=== PATIENT | male | born 1950 | race Caucasian/White ===

== ENCOUNTER → 2016-06-01 | Outpatient (REF) | payer OTHER ==
[~2016-06-01] MED LIST: ASPI81TA85 PO; ATOR40TA PO; CARV25TA PO; FISH100049 PO; IRON65TA PO; LORT5TAB PO; METF750T PO; MULTTAB PO; NEXI40CA PO
== END | disposition home or self-care (01) ==
LOC: M LAB REF 12:32
PROVIDERS: ATTEND Internal Medicine Medical Oncology
DX: C18.9 Malignant neoplasm of colon, unspecified (principal)

== ENCOUNTER → 2016-07-01 | Outpatient (REF) | payer MEDICARE, OTHER ==
[2016-07-01 14:23] LABS: BLOOD UREA NITROGEN 16 MG/DL (7-18); CREATININE FOR GFR 0.79 MG/DL (0.70-1.30); GLOMERULAR FILTRATION RATE > 60.0 (>49)
== END ==
LOC: M LABDRAW1 13:00
PROVIDERS: ATTEND Orthopaedic Surgery
DX: M23.222 Derangement of posterior horn of medial meniscus due to old tear or injury, left knee (principal)

== ENCOUNTER → 2016-08-19 | Outpatient (REF) | payer MEDICARE, OTHER ==
[~2016-08-19] MED LIST changes: -ATOR40TA PO; +ATOR40TA75 PO
[2016-08-19 12:11] LABS: ALBUMIN 3.9 GM/DL (3.2-5.2); ALBUMIN/GLOBULIN RATIO 0.91 (1.00-1.93); ALKALINE PHOSPHATASE 70 U/L (45-117); ALT/SGPT 30 U/L (12-78); ANION GAP 7 MEQ/L (8-16); AST/SGOT 15 U/L (15-37); BILIRUBIN,TOTAL 0.5 MG/DL (0.2-1.0); BLOOD UREA NITROGEN 13 MG/DL (7-18); CARBON DIOXIDE LEVEL 28 MEQ/L (21-32); CHLORIDE LEVEL 105 MEQ/L (98-107); CHOLESTEROL LEVEL 219 MG/DL (<200); CREATININE FOR GFR 0.76 MG/DL (0.70-1.30); GLOMERULAR FILTRATION RATE > 60.0 (>49); GLUCOSE, FASTING 131 MG/DL (80-110); POTASSIUM SERUM 4.3 MEQ/L (3.5-5.1); SODIUM LEVEL 140 MEQ/L (136-145); TOTAL PROTEIN 8.2 GM/DL (6.4-8.2); TRIGLYCERIDES LEVEL 291 MG/DL (<150)
== END ==
LOC: M SFHCPLAZ 08:07
PROVIDERS: ATTEND Nurse Practitioner Adult Health
DX: I10 Essential (primary) hypertension (principal); E11.9 Type 2 diabetes mellitus without complications; E78.00 Pure hypercholesterolemia, unspecified; R97.20 Elevated prostate specific antigen [PSA]
CPT/HCPCS: 80053; 80061; 82043; 83036; G0103

== ENCOUNTER → 2017-03-29 | Outpatient (REF) | payer MEDICARE, OTHER | LOC: M LAB REF 13:42 | PROVIDERS: ATTEND Internal Medicine Medical Oncology | DX: C18.9 Malignant neoplasm of colon, unspecified (principal) ==

== ENCOUNTER → 2017-06-30 | Outpatient (REF) | payer OTHER | LOC: M LAB REF 13:44 | DX: C44.41 Basal cell carcinoma of skin of scalp and neck (principal) ==

== ENCOUNTER → 2017-08-04 | Outpatient (REF) | payer MEDICARE, OTHER ==
[2017-08-04 13:19] LABS: ALBUMIN 3.6 GM/DL (3.2-5.2); ALBUMIN/GLOBULIN RATIO 0.73 (1.00-1.93); ALKALINE PHOSPHATASE 82 U/L (45-117); ALT/SGPT 38 U/L (12-78); ANION GAP 9 MEQ/L (8-16); AST/SGOT 22 U/L (7-37); BILIRUBIN,TOTAL 0.3 MG/DL (0.2-1.0); BLOOD UREA NITROGEN 19 MG/DL (7-18); CALCIUM LEVEL 8.9 MG/DL (8.8-10.2); CARBON DIOXIDE LEVEL 23 MEQ/L (21-32); CHLORIDE LEVEL 108 MEQ/L (98-107); CHOLESTEROL LEVEL 172 MG/DL (<200); CHOLESTEROL RISK RATIO 5.212 (<5); CREATININE FOR GFR 0.88 MG/DL (0.70-1.30); GLOMERULAR FILTRATION RATE > 60.0 (>49); GLUCOSE, FASTING 124 MG/DL (70-100); HDL CHOLESTEROL 33 MG/DL (>40); LDL CHOLESTEROL 93.2 MG/DL (<100); NON-HDL-C 139 MG/DL; POTASSIUM SERUM 4.8 MEQ/L (3.5-5.1); SODIUM LEVEL 140 MEQ/L (136-145); TOTAL PROTEIN 8.5 GM/DL (6.4-8.2); TRIGLYCERIDES LEVEL 229 MG/DL (<150)
[2017-08-04 13:29] LABS: ESTIMATED AVERAGE GLUCOSE 160 MG/DL (60-110); HEMOGLOBIN A1c 7.2 %
[2017-08-04 13:51] LABS: MALB URINE SIEMENS 18.9 MG/L; MAU/CREAT RATIO 13.8 MCG/MG (0.0-30.0)
== END ==
LOC: M SFHCPLAZ 08:26
DX: E11.9 Type 2 diabetes mellitus without complications (principal); E78.2 Mixed hyperlipidemia
CPT/HCPCS: 80053

== ENCOUNTER → 2017-09-23 | Outpatient (REF) | payer MEDICARE, OTHER ==
[2017-09-23 13:42] LABS: CARCINOEMBRYONIC ANTIGEN 2.7 NG/ML (<2.5)
== END ==
LOC: M LAB REF 13:18
DX: Z08 Encounter for follow-up examination after completed treatment for malignant neoplasm (principal); Z85.038 Personal history of other malignant neoplasm of large intestine
CPT/HCPCS: 82378

== ENCOUNTER → 2018-02-24 | Outpatient (REF) | payer MEDICARE, OTHER ==
[2018-02-24 12:31] LABS: ALBUMIN 3.8 GM/DL (3.2-5.2); ALBUMIN/GLOBULIN RATIO 0.79 (1.00-1.93); ALKALINE PHOSPHATASE 73 U/L (45-117); ALT/SGPT 44 U/L (12-78); ANION GAP 7 MEQ/L (8-16); AST/SGOT 24 U/L (7-37); BILIRUBIN,TOTAL 0.4 MG/DL (0.2-1.0); BLOOD UREA NITROGEN 21 MG/DL (7-18); CALCIUM LEVEL 9.1 MG/DL (8.8-10.2); CARBON DIOXIDE LEVEL 25 MEQ/L (21-32); CHLORIDE LEVEL 106 MEQ/L (98-107); CHOLESTEROL LEVEL 203 MG/DL (<200); CREATININE FOR GFR 0.87 MG/DL (0.70-1.30); GLOMERULAR FILTRATION RATE > 60.0 (>49); GLUCOSE, FASTING 143 MG/DL (70-100); HDL CHOLESTEROL 35 MG/DL (>40); MAGNESIUM LEVEL 1.9 MG/DL (1.8-2.4); NON-HDL-C 168 MG/DL; POTASSIUM SERUM 4.4 MEQ/L (3.5-5.1); PROSTATIC SPECIFIC AG MONITOR 4.9 NG/ML (< 4.0); SODIUM LEVEL 138 MEQ/L (136-145); TOTAL PROTEIN 8.6 GM/DL (6.4-8.2); TRIGLYCERIDES LEVEL 477 MG/DL (<150)
[2018-02-24 14:35] LABS: ESTIMATED AVERAGE GLUCOSE 154 MG/DL (60-110)
== END ==
LOC: M SFHCPLAZ 07:41
DX: E11.9 Type 2 diabetes mellitus without complications (principal); E78.2 Mixed hyperlipidemia; R00.2 Palpitations; R97.20 Elevated prostate specific antigen [PSA]
CPT/HCPCS: 83735

== ENCOUNTER 2018-05-08 08:58 | Day surgery (SDC) | payer MEDICARE, OTHER ==
[~2018-05-08] VITALS: Ht 193 cm; Wt 120.2 kg
[~2018-05-08 08:58] MED LIST changes: +MELO15TA28 PO; +VASC1CAP2 PO
[2018-05-08] MEDS ORDERED: NS 1,000 ML IV ONE (09:30)
[2018-05-08] MEDS ORDERED: PROPOFOL 200 MG/20 ML VIAL As Ordered ONE (09:40)
[2018-05-08] MEDS ORDERED: LIDOCAINE 2% INJ 100 MG/5 ML SDV (FOR ANES.) As Ordered ONE (09:52)
[2018-05-08] MEDS ORDERED: fentaNYL 100 MCG/2 ML INJECTION (J3010) As Ordered ONE (09:54)
--- NOTE | 2018-05-08 10:34 | ROOR ---
Patient Name: Jemal De Leon Procedure Date: 05/08/2018 10:17 AM Date of : 1950 Age: 67 Room: [facility] Gender: Male Note Status: Finalized Procedure: Upper Endoscopy + Biopsies Indications: Heartburn, Exclusion of Cary's esophagus Providers: Bismark Corona MD Referring MD: Alex Luevano MD Requesting Provider: Medicines: Monitored Anesthesia Care Complications: No immediate complications. Procedure: Pre-Anesthesia Assessment: - The heart rate, respiratory rate, oxygen saturations, blood pressure, adequacy of pulmonary ventilation, and response to care were monitored throughout the procedure. The Endoscope was introduced through the mouth, and advanced to the second part of duodenum. The upper GI endoscopy was accomplished without difficulty. The patient tolerated the procedure well. Findings: The Z-line was irregular and was found 45 cm from the incisors. Multiple biopsies were obtained with cold forceps for evaluation to rule out Cary's Esophagus randomly at the gastroesophageal junction. A small hiatal hernia was present. No other significant abnormalities were identified in a careful examination of the stomach. The exam of the duodenum was otherwise normal. Impression: - Z-line irregular, 45 cm from the incisors. - Small hiatal hernia. - Multiple biopsies were obtained at the gastroesophageal junction. - The examination was otherwise normal. Recommendation: - Patient has a contact number available for emergencies. The signs and symptoms of potential delayed complications were discussed with the patient. Return to normal activities tomorrow. Written discharge instructions were provided to the patient. - Resume previous diet. - Discharge patient to home. - Follow an antireflux regimen. - Continue present medications. - Await pathology results. - Telephone GI clinic for pathology results in 1 week. - Return to referring physician. - The findings and recommendations were discussed with the patient's family. Bismark Corona MD Bismark Corona MD 05/08/2018 10:34:33 AM This report has been signed electronically. Number of Addenda: 0 Note Initiated On: 05/08/2018 10:17 AM Estimated Blood Loss: Estimated blood loss: none.
--- NOTE | 2018-05-08 10:58 | ROOR ---
Patient Name: Jemal De Leon Procedure Date: 05/08/2018 10:18 AM Date of : 1950 Age: 67 Room: [facility] Gender: Male Note Status: Finalized Procedure: Colonoscopy to Anastomosis + Biopsy Polypectomy Indications: High risk colon cancer surveillance: Personal history of colon cancer Providers: Bismark Corona MD Referring MD: Alex Luevano MD Requesting Provider: Medicines: Monitored Anesthesia Care Complications: No immediate complications. Procedure: Pre-Anesthesia Assessment: - The heart rate, respiratory rate, oxygen saturations, blood pressure, adequacy of pulmonary ventilation, and response to care were monitored throughout the procedure. The Colonoscope was introduced through the anus and advanced to the transverse colon to examine an anastomosis. This was the intended extent. The colonoscopy was performed without difficulty. The patient tolerated the procedure well. The quality of the bowel preparation was excellent. Findings: The perianal and digital rectal examinations were normal. Non-bleeding internal hemorrhoids were found during retroflexion. The hemorrhoids were small and Grade I (internal hemorrhoids that do not prolapse). Multiple small and large-mouthed diverticula were found in the recto-sigmoid colon, sigmoid colon and descending colon. A small polyp was found in the rectum. The polyp was sessile. The polyp was removed with a jumbo cold forceps. Resection and retrieval were complete. The exam was otherwise without abnormality on direct and retroflexion views. There was evidence of a prior end-to-side ileo-colonic anastomosis at the hepatic flexure. This was patent and was characterized by healthy appearing mucosa. Impression: - Non-bleeding internal hemorrhoids. - Diverticulosis in the recto-sigmoid colon, in the sigmoid colon and in the descending colon. - One small polyp in the rectum, removed with a jumbo cold forceps. Resected and retrieved. - The examination was otherwise normal on direct and retroflexion views. - Patent end-to-side ileo-colonic anastomosis, characterized by healthy appearing mucosa. Recommendation: - Patient has a contact number available for emergencies. The signs and symptoms of potential delayed complications were discussed with the patient. Return to normal activities tomorrow. Written discharge instructions were provided to the patient. - Discharge patient to home. - Continue present medications. - Await pathology results. - Telephone GI clinic for pathology results in 1 week. - Check Portal Online for Path Results.([email or web address]) - Return to referring physician. - The findings and recommendations were discussed with the patient's family. Bismark Corona MD Bismark Corona MD 05/08/2018 10:57:37 AM This report has been signed electronically. Number of Addenda: 0 Note Initiated On: 05/08/2018 10:18 AM Estimated Blood Loss: Estimated blood loss: none.
[2018-05-08 11:10] VITALS: BP 135/88
== END 2018-05-08 11:20 | disposition home or self-care (01) ==
LOC: M OPP 08:58
PROVIDERS: ATTEND Internal Medicine Gastroenterology
DX: Z85.038 Personal history of other malignant neoplasm of large intestine (principal); Z80.0 Family history of malignant neoplasm of digestive organs; K64.0 First degree hemorrhoids; K62.1 Rectal polyp; Z98.0 Intestinal bypass and anastomosis status; K57.30 Diverticulosis of large intestine without perforation or abscess without bleeding; K22.8 Other specified diseases of esophagus; K44.9 Diaphragmatic hernia without obstruction or gangrene; R12 Heartburn; E11.9 Type 2 diabetes mellitus without complications; G47.30 Sleep apnea, unspecified; Z79.82 Long term (current) use of aspirin; Z79.899 Other long term (current) drug therapy; Z87.891 Personal history of nicotine dependence
CPT/HCPCS: 43239; 45380; 88305; J3010

== ENCOUNTER → 2018-09-12 | Outpatient (REF) | payer MEDICARE, OTHER ==
[2018-09-12 12:58] LABS: ALBUMIN 3.6 GM/DL (3.2-5.2); ALT/SGPT 30 U/L (12-78); BILIRUBIN,TOTAL 0.4 MG/DL (0.2-1.0); BLOOD UREA NITROGEN 21 MG/DL (7-18); CALCIUM LEVEL 8.4 MG/DL (8.8-10.2); CARBON DIOXIDE LEVEL 21 MEQ/L (21-32); CHLORIDE LEVEL 107 MEQ/L (98-107); CHOLESTEROL LEVEL 155 MG/DL (<200); CHOLESTEROL RISK RATIO 4.305 (<5); CREATININE FOR GFR 0.94 MG/DL (0.70-1.30); GLOMERULAR FILTRATION RATE > 60.0 (>49); GLUCOSE, FASTING 144 MG/DL (70-100); HDL CHOLESTEROL 36 MG/DL (>40); LDL CHOLESTEROL 75 MG/DL (<100); MAGNESIUM LEVEL 2.1 MG/DL (1.8-2.4); NON-HDL-C 119 MG/DL; POTASSIUM SERUM 4.6 MEQ/L (3.5-5.1); PROSTATIC SPECIFIC AG MONITOR 6.12 NG/ML (< 4.00); SODIUM LEVEL 138 MEQ/L (136-145); TOTAL PROTEIN 9.4 GM/DL (6.4-8.2); TRIGLYCERIDES LEVEL 218 MG/DL (<150)
[2018-09-12 13:11] LABS: HEMOGLOBIN A1c 7.3 %
[2018-09-12 13:17] LABS: MALB URINE SIEMENS 31.3 MG/L; MAU/CREAT RATIO 16.4 MCG/MG (0.0-30.0)
== END ==
LOC: M SFHCPLAZ 08:36
PROVIDERS: ATTEND Internal Medicine
DX: I10 Essential (primary) hypertension (principal); E11.9 Type 2 diabetes mellitus without complications; E78.2 Mixed hyperlipidemia; R97.20 Elevated prostate specific antigen [PSA]

== ENCOUNTER → 2018-10-05 | Outpatient (CLI) | payer MEDICARE, OTHER ==
[~2018-10-05] MED LIST changes: +GASTROGRAFIN SOLUTION 30ML (Q9963) As Ordered ONE; +ISOVUE-370 76% 100ML VIAL (Q9967) As Ordered ONE; +LISI10TA4 PO; +MULT1TAB7 PO
--- NOTE | 2018-10-05 17:44 | REP ---
CT chest with IV contrast: History: Colon carcinoma. Follow-up. Comparison chest CT study September 21, 2017. CT contrast dose: 100 ml of intravenous Isovue 370. CT findings: Preliminary digital electric welder helper radiograph is unremarkable. There is no evidence of mediastinal or hilar mass or adenopathy. There is some coronary artery vascular calcification. Thoracic aorta shows no evidence of aneurysm or dissection. No filling defect is seen in the pulmonary arterial tree. No infiltrate is seen. No pleural or pericardial effusion. There are scattered small granulomatous nodules in the lung vo bilaterally unchanged from prior studies. No significant pulmonary nodule is seen. No bony destructive lesion is seen. Impression: No active disease. Electronically Signed by Eddie Gee MD 10/05/2018 07:55 P
--- NOTE | 2018-10-05 17:49 | REP ---
CT abdomen pelvis with IV and oral contrast: History: Follow-up colon cancer. Comparison CT study September 21, 2017. CT contrast dose: 100 ml of intravenous Isovue 370. CT findings: The liver and the spleen remain normal in size homogeneous in texture. No adrenal lesion is seen. There is no evidence of upper abdominal lymphadenopathy. No abnormality is noted in the gallbladder or pancreas. No retroperitoneal mass or adenopathy is observed. There is a tiny cyst in the lower pole right kidney. The patient is status post right colectomy with an anastomosis in the right upper abdomen. No colonic mass lesion is seen. There is diverticulosis of the left colon without CT evidence of diverticulitis. No pelvic mass or adenopathy is seen. Moderate to marked enlargement of prostate is again noted. Urinary bladder is unremarkable. Bone window settings show no bony destructive lesion. Impression: No active disease in the abdomen. Enlarged prostate and postoperative changes in the right colon. Left colonic diverticulosis. Electronically Signed by Eddie Gee MD 10/05/2018 07:56 P
== END ==
LOC: M RAD 14:28
PROVIDERS: ATTEND Internal Medicine Medical Oncology
DX: Z85.038 Personal history of other malignant neoplasm of large intestine (principal); N28.1 Cyst of kidney, acquired; N40.1 Benign prostatic hyperplasia with lower urinary tract symptoms
CPT/HCPCS: 71260; 74177; Q9963; Q9967

== ENCOUNTER → 2019-03-23 | Outpatient (CLI) | payer MEDICARE, OTHER ==
[~2019-03-23] MED LIST changes: -GASTROGRAFIN SOLUTION 30ML (Q9963) As Ordered ONE; -ISOVUE-370 76% 100ML VIAL (Q9967) As Ordered ONE; -METF750T PO; +METF750T36 PO
[2019-03-23 14:23] LABS: BASO % 0.4 % (0.0-1.0); EOS % 0.7 % (0.0-3.0); HEMATOCRIT 28.4 % (42.0-52.0); HEMOGLOBIN 9.3 g/dl (13.5-17.5); LYMPH # 1.2 10^3/uL (1.5-5.0); LYMPH % 42.3 % (24.0-44.0); MEAN CORPUSCULAR HEMOGLOBIN 33.8 pg (27.0-33.0); MEAN CORPUSCULAR HGB CONC 32.7 g/dl (32.0-36.5); MEAN CORPUSCULAR VOLUME 103.3 fl (80.0-96.0); MONO # 0.1 10^3/uL (0.0-0.8); MONO % 5.1 % (0.0-5.0); NEUTROPHILS # 1.4 10^3/uL (1.5-8.5); NEUTROPHILS % 51.1 % (36.0-66.0); PLATELET COUNT, AUTOMATED 146 10^3/uL (150-450); RED BLOOD COUNT 2.75 10^6/uL (4.30-6.10); WHITE BLOOD COUNT 2.7 10^3/uL (4.0-10.0)
[2019-03-23 14:42] LABS: ALBUMIN 3.5 GM/DL (3.2-5.2); ALT/SGPT 29 U/L (12-78); BILIRUBIN,TOTAL 0.6 MG/DL (0.2-1.0); BLOOD UREA NITROGEN 17 MG/DL (7-18); CALCIUM LEVEL 8.9 MG/DL (8.8-10.2); CARBON DIOXIDE LEVEL 26 MEQ/L (21-32); CHLORIDE LEVEL 104 MEQ/L (98-107); CREATININE FOR GFR 1.01 MG/DL (0.70-1.30); GLOMERULAR FILTRATION RATE > 60.0 (>49); GLUCOSE, FASTING 131 MG/DL (70-100); POTASSIUM SERUM 4.2 MEQ/L (3.5-5.1); SODIUM LEVEL 136 MEQ/L (136-145); TOTAL PROTEIN 10.1 GM/DL (6.4-8.2)
== END ==
LOC: M PLALAB 08:56
PROVIDERS: ATTEND Internal Medicine Medical Oncology
DX: Z85.038 Personal history of other malignant neoplasm of large intestine (principal)

== ENCOUNTER → 2019-03-23 | Outpatient (CLI) | payer MEDICARE, OTHER ==
[2019-03-23 14:26] LABS: HEMATOCRIT 28.3 % (42.0-52.0); HEMOGLOBIN 9.4 g/dl (13.5-17.5); MEAN CORPUSCULAR HEMOGLOBIN 34.3 pg (27.0-33.0); MEAN CORPUSCULAR HGB CONC 33.2 g/dl (32.0-36.5); MEAN CORPUSCULAR VOLUME 103.3 fl (80.0-96.0); PLATELET COUNT, AUTOMATED 144 10^3/uL (150-450); RED BLOOD COUNT 2.74 10^6/uL (4.30-6.10); WHITE BLOOD COUNT 2.8 10^3/uL (4.0-10.0)
[2019-03-23 14:40] LABS: ALBUMIN 3.6 GM/DL (3.2-5.2); ALT/SGPT 29 U/L (12-78); BILIRUBIN,TOTAL 0.5 MG/DL (0.2-1.0); BLOOD UREA NITROGEN 17 MG/DL (7-18); CALCIUM LEVEL 8.6 MG/DL (8.8-10.2); CARBON DIOXIDE LEVEL 26 MEQ/L (21-32); CHLORIDE LEVEL 104 MEQ/L (98-107); CHOLESTEROL LEVEL 138 MG/DL (<200); CREATININE FOR GFR 0.93 MG/DL (0.70-1.30); GLOMERULAR FILTRATION RATE > 60.0 (>49); GLUCOSE, FASTING 132 MG/DL (70-100); HDL CHOLESTEROL 40 MG/DL (>40); LDL CHOLESTEROL 62 MG/DL (<100); MAGNESIUM LEVEL 1.8 MG/DL (1.8-2.4); NON-HDL-C 98 MG/DL; POTASSIUM SERUM 4.2 MEQ/L (3.5-5.1); PROSTATIC SPECIFIC AG MONITOR 5.55 NG/ML (< 4.00); SODIUM LEVEL 136 MEQ/L (136-145); TOTAL PROTEIN 10.1 GM/DL (6.4-8.2); TRIGLYCERIDES LEVEL 178 MG/DL (<150)
[2019-03-23 14:42] LABS: HEMOGLOBIN A1c 7.2 %
[2019-03-23 19:23] LABS: FERRITIN 92 NG/ML (26-388); IRON (FE) 41 UG/DL (65-175); PERCENT SATURATION 13.3 % (19.7-50.0); TOTAL IRON BINDING CAPACITY 308 UG/DL (250-450)
[2019-03-23 19:31] LABS: VITAMIN B12 LEVEL 359 PG/ML
[2019-03-27 10:35] LABS: ALBUMIN % 43.6 % (55.8-66.1); ALPHA-1-GLOBULIN % 2.8 % (2.9-4.9); ALPHA-1-GLOBULINS 0.28 GM/DL (0.17-0.41); ALPHA-2-GLOBULINS 0.73 GM/DL (0.42-0.99); ALPHA-2-GLOBULINS % 7.2 % (7.1-11.8); BETA-1-GLOBULINS 0.42 GM/DL (0.28-0.60); BETA-1-GLOBULINS % 4.2 % (4.7-7.2); BETA-2-GLOBULINS 0.21 GM/DL (0.19-0.55); BETA-2-GLOBULINS % 2.1 % (3.2-6.5); GAMMA GLOBULIN % 40.1 % (11.1-18.8); GAMMA GLOBULINS 4.05 GM/DL (0.65-1.58)
== END ==
LOC: M PLALAB 08:51
PROVIDERS: ATTEND Internal Medicine
DX: E11.9 Type 2 diabetes mellitus without complications (principal); M17.0 Bilateral primary osteoarthritis of knee; Z12.5 Encounter for screening for malignant neoplasm of prostate; Z85.038 Personal history of other malignant neoplasm of large intestine

== ENCOUNTER 2019-04-19 10:03 | Emergency (ER) | payer MEDICARE, OTHER ==
[~2019-04-19] VITALS: Ht 188 cm; Wt 122.4 kg
[~2019-04-19 10:03] MED LIST changes: +ATIV1TAB10 PO
--- NOTE | 2019-04-19 11:45 | REP ---
Clinical: Cough and dyspnea . Technique: PA and lateral. Findings: The mediastinum and cardiac silhouette are normal. The lung vo are clear and without acute consolidation, effusion, or pneumothorax. The skeletal structures are intact and normal. Impression: 1. No acute cardiopulmonary process. Electronically Signed by Wilton June MD 04/19/2019 11:37 A
[2019-04-19 12:23] VITALS: BP 139/82
[2019-04-20] MEDS ORDERED: VALT500T PO (14:54)
[2019-04-20] MEDS ORDERED: BACT800T5 PO (14:54)
[2019-04-20] MEDS ORDERED: DECA4TAB PO (14:56)
[2019-04-20] MEDS ORDERED: LOVE1INJ SC (15:05)
[2019-04-24] MEDS ORDERED: REVL2.5C PO (16:07)
[2019-04-26] MEDS ORDERED: ZYLO300T6 PO (19:36)
== END 2019-04-19 12:24 | disposition home or self-care (01) ==
LOC: M ED 10:03
DX: J01.90 Acute sinusitis, unspecified (principal); J02.9 Acute pharyngitis, unspecified; J30.9 Allergic rhinitis, unspecified; I10 Essential (primary) hypertension; E78.5 Hyperlipidemia, unspecified; G47.30 Sleep apnea, unspecified; Z79.82 Long term (current) use of aspirin; Z79.899 Other long term (current) drug therapy

== ENCOUNTER → 2019-04-20 | Outpatient (CLI) | payer MEDICARE, OTHER ==
[~2019-04-20] MED LIST changes: +BACT800T5 PO; +DECA4TAB PO; +LOVE1INJ SC; +REVL2.5C PO; +VALT500T PO
--- NOTE | 2019-04-21 19:07 | ECGEPIP ---
[facility] Test Date: 2019-04-20 Pat Name: MITZI CHRISTIANSON Department: Room: - Gender: Male Property Developer: [facility] : 1950 Requested By: Yamileth Yañez Order Number: [id number] Reading MD: Alex Luevano Measurements Intervals [place] Rate: 72 P: 60 OR: 156 QRS: 30 QRSD: 113 T: 39 QT: 397 QTc: 435 Interpretive Statements Normal sinus rhythm Incomplete right bundle branch block Nonspecific ST-T wave abnormalities Comparison tracing not on file Electronically Signed on 04-21-2019 19:07:27 EST by Alex Luevano
== END ==
LOC: M EKG 13:13
PROVIDERS: ATTEND Internal Medicine Medical Oncology
DX: C90.00 Multiple myeloma not having achieved remission (principal); Z85.038 Personal history of other malignant neoplasm of large intestine

== ENCOUNTER → 2019-04-23 | Outpatient (CLI) | payer MEDICARE, OTHER ==
--- NOTE | 2019-04-23 16:30 | REP ---
Adult skeletal survey: 18 views. History: Multiple myeloma. Findings: AP and lateral views of the skull show no bony calvarial lytic lesion. Paranasal sinuses appear to be clear. No mandibular lesion is seen. AP and lateral views of the cervical spine show advanced degenerative spondylosis but no collapse or bony destructive lesion. AP and lateral views of the thoracic spine and lumbar spine show degenerative disc disease with spurring. No fracture or collapse is seen. Pedicles and posterior elements are intact. There are glenohumeral and acromioclavicular joint osteoarthritic changes and bilateral knee joint osteoarthritic changes. No long bone bony destructive lesion is seen. AP view of the pelvis shows no bony destructive lesion in the pelvis. No rib lesion is appreciated. Impression: Degenerative spondylosis changes. No focal bony destructive lesion is identified. Electronically Signed by Eddie Gee MD 04/23/2019 05:53 P
== END ==
LOC: M RAD 14:39
PROVIDERS: ATTEND Internal Medicine Medical Oncology
DX: C90.00 Multiple myeloma not having achieved remission (principal)

== ENCOUNTER → 2019-04-25 | Outpatient (CLI) | payer MEDICARE, OTHER ==
[~2019-04-25] MED LIST changes: +ZYLO300T6 PO
--- NOTE | 2019-04-25 22:36 | ECHO ---
DATE OF PROCEDURE: 04/25/2019 REFERRING PHYSICIAN: Yamileth Mak MD INDICATION: Chemotherapy drugs that may affect the heart. HEIGHT: 6 feet 2 inches WEIGHT: 265 pounds 2D MEASUREMENTS: Ventricular septum: 1.17 cm Posterior wall: 1.14 cm Left ventricle diastole: 5.0 cm LVOT: 2.2 cm Aortic root: 3.7cm Left atrium: 3.4 cm Inferior vena cava: 1.5 cm DOPPLER MEASUREMENTS: No aortic regurgitation. No mitral regurgitation. Trace tricuspid regurgitation. No pulmonic regurgitation. Mitral E velocity: 77.6 cm/s Mitral A velocity: 90.8 cm/s Mitral deceleration time: 215 ms Aortic valve velocity: 135 cm/s LVOT velocity: 102 cm/s Estimated right ventricle systolic pressure: 30-35 mmHg assuming a right atrial pressure of 5-10 mmHg. MITRAL ANNULAR TISSUE DOPPLER: E prime septal: 5.8 cm/s E prime lateral: 5.0 cm/s DESCRIPTION: Rhythm was sinus. Image quality was adequate. This was a 2D, M-mode, color flow Doppler and pulse wave Doppler examination that included mitral annular tissue Doppler. CONCLUSIONS: 1. Normal left ventricle internal dimensions and wall thickness. Normal regional wall motion and wall thickness. Normal left ventricle (LV) systolic function. Left ventricular ejection fraction (LVEF) 65% by visual estimate. Grade 1 LV diastolic dysfunction (impaired relaxation filling pattern). 2. Normal right ventricle size and systolic function. Suggestive of estimated right ventricle systolic pressure to be near the upper limits of normal to slightly increased. 3. No pericardial effusion. 4. Mild aortic valve sclerosis of a three-cuspid aortic valve. No aortic regurgitation. 5. Mild mitral annular calcification. No mitral regurgitation.
== END ==
LOC: M CARPUL 09:50
PROVIDERS: ATTEND Internal Medicine Medical Oncology
DX: C18.9 Malignant neoplasm of colon, unspecified (principal); I34.0 Nonrheumatic mitral (valve) insufficiency

== ENCOUNTER → 2019-04-26 | Outpatient (CLI) | payer MEDICARE, OTHER ==
[~2019-04-26] MED LIST changes: +AZIT-12 PO; +LIDOCAINE 1% MDV 20ML VIAL As Ordered ONE; +MIDAZOLAM INJ 2 MG/2 ML VIAL (J2250) As Ordered ONE; +PROC10TA4 PO; +REVL25CA PO; +ceFAZolin 1GM INJ (J0690 PER 500MG) As Ordered ONE; +diphenhydrAMINE INJ 50MG/ML VIAL (J1200) As Ordered ONE; +fentaNYL 100 MCG/2 ML INJECTION (J3010) As Ordered ONE
--- NOTE | 2019-04-26 09:19 | IRHP ---
[facility] IR Pre-Procedure H & P General Date of Service: Apr 26, 2019 Procedure: Same Day Surgery Interval History and Physical I have seen the patient and reviewed last H & P performed within 30 days. There is no significant interval change. History of Present Illness Chief Complaint The patient is a 68-year-old male admitted with a reason for visit of Colon Ca. PRE-PROCEDURE DIAGNOSIS:colon ca HEART: normal rate. LUNGS: normal breathing at rest. ASA Classification ASA Classification: II-Mild systemic disease Mallampati Score: I, II NPO: Yes Problems with prior sedation: No Obstructive Sleep Apnea: Yes Plan moderate sedation Allergies Coded Allergies: No Known Allergies (Unverified , 07/20/18) Home Medications Scheduled Aspirin (Aspir 81), 81 MG PO DAILY, (Reported) Atorvastatin Calcium (Atorvastatin Calcium), 40 MG PO DAILY, (Reported) Carvedilol (Carvedilol), 12.5 MG PO BID, (Reported) Dexamethasone (Decadron), 4 MG PO as directed Enoxaparin Sodium (Lovenox), 40 MG SC DAILY Esomeprazole Magnesium (Nexium), 40 MG PO DAILY, (Reported) Icosapent Ethyl (Vascepa), 2 GM PO BID, (Reported) Lenalidomide (Revlimid), 2-5 MG PO DAILY Lisinopril (Lisinopril), 1 TAB PO DAILY, (Reported) Meloxicam (Meloxicam), 15 MG PO QPM, (Reported) Metformin HCl (Metformin HCl ER), 1,500 MG PO DAILY, (Reported) Multivitamin with Minerals (Multiple Vitamin), 1 TAB PO DAILY, (Reported) Sulfamethoxazole/Trimethoprim (Bactrim Ds Tablet), 1 TAB PO 3XW Valacyclovir HCl (Valtrex), 1 TAB PO DAILY Scheduled PRN Lorazepam (Ativan), 1 TAB PO ONCE PRN for pre procedure VS, I&O, 24H, Fishbone Vital Signs/I&O Vital Signs Date Time Temp Pulse Resp B/P (MAP) Pulse Ox O2 Delivery O2 Flow Rate FiO2 04/26/19 08:53 64 16 96 Room Air 04/26/19 08:51 2 04/26/19 07:37 96.3 DIANA ZAPATA MD Apr 26, 2019 09:19
[2019-04-26 10:57] VITALS: BP 140/85
--- NOTE | 2019-04-26 11:14 | POST-OPPD ---
Postoperative Procedure Note Date Of Procedure: Apr 26, 2019 Time Of Procedure: 10:44 PREOPERATIVE DIAGNOSIS: colon ca POSTOPERATIVE DIAGNOSIS: same FINDINGS: patent right IJ PROCEDURE: right sided port SURGEON: brook ANESTHESIA: mod sed ESTIMATED BLOOD LOSS: < 5 ml COMPLICATIONS: none POSTOPERATIVE CONDITION: stable DIANA ZAPATA MD Apr 26, 2019 11:14
--- NOTE | 2019-04-27 17:04 | REP ---
IR Ultrasound and fluoroscopy-guided port placement. IR Ultrasound of the neck. IR Moderate sedation. Clinical information: Colon cancer. Physician: Dr. Ac. Procedure: The patient was advised of the benefits, risks, and alternatives of the procedure and informed consent was obtained. A time-out was performed with verification of the patient's name, MRN, site of procedure and type of procedure to be performed. The patient was positioned in the supine position on the angiographic table. The site was prepped and draped in the usual sterile fashion. Moderate sedation was performed by the physician including the presence of an independent trained observer who assisted and monitored the patient's level of consciousness and physiologic status. Following the administration of fentanyl and Versed, the physician spent 45 minutes of continuous face to face time with the patient. Ultrasound of the neck reveals a patent and compressible right internal jugular vein. A group product manager radiograph reveals no gross abnormality. The neck and anterior chest wall were anesthetized with lidocaine. The right internal jugular vein was accessed using a microintroducer needle under ultrasound guidance, via a lateral approach. An 018 wire was advanced into the superior vena cava, the needle was removed and a microsheath was placed. An Amplatz wire was then passed into the inferior vena cava. An incision at the internal jugular vein access site and anterior chest wall were made using a scalpel. An incision was made at the anterior chest wall. A small pocket was created using a combination of blunt and sharp dissection. A tunneling device was then used to pass the catheter from the pocket to the neck puncture site. An 8-Tajik Angio dynamics Smart power port was then positioned in the pocket. The catheter was then measured and cut. The introducer sheath was exchanged for a peel-away sheath. The catheter was passed through the peel-away sheath into the internal jugular vein and the peel-away sheath was removed. The port tip was positioned at the cavoatrial junction. The port was then accessed with a Dixon needle. The port flushes and aspirates well. The puncture site in the neck was closed. The chest wall incision was then closed with 2-0 Vicryl and 4-0 Monocryl. Glue and Steri-Strips were applied. A sterile dressing was then applied. The patient tolerated the procedure well and was returned to the PRU in stable condition. Estimated blood loss: <5 ml. Complications: None. Conclusion: 1. Successful placement of an 8-Tajik Angio dynamics Smart power port via the right internal jugular vein. The port is ready for immediate use. 2. Patient to follow up in IR clinic in 2 weeks. Thank you for this referral. Electronically Signed by Flavia Ac MD 04/27/2019 05:03 P
== END ==
LOC: M IRPRO 07:28
PROVIDERS: ATTEND Internal Medicine Medical Oncology
DX: C18.9 Malignant neoplasm of colon, unspecified (principal); Z79.899 Other long term (current) drug therapy; Z79.82 Long term (current) use of aspirin
CPT/HCPCS: 36561; J0690; J1200; J2250; J3010; C1769; C1788; C1894; 99152; 99153

== ENCOUNTER 2019-05-14 11:56 | Outpatient (CLI) | payer MEDICARE, OTHER ==
[~2019-05-14] VITALS: Ht 188 cm; Wt 120.0 kg
[2019-05-14] VITALS (10 sets, daily range): BP systolic 114–168; BP diastolic 57–91
[~2019-05-14 11:56] MED LIST changes: +ACETAMINOPHEN TAB 650MG DOSE (2X325MG) PO SCH; -ISOVUE-370 76% 100ML VIAL (Q9967) As Ordered ONE; -REVL15CA PO; -TRIA1CR80 TOP; +diphenhydrAMINE 25 MG CAP PO SCH
[2019-05-14] MEDS ORDERED: SODIUM CHLORIDE 0.9% INJ 10 ML SYR IV PRN (16:00)
[2019-05-15] MEDS ORDERED: TRIA1CR80 TOP (08:12)
[2019-05-15] MEDS ORDERED: SODIUM CHLORIDE 0.9% INJ 10 ML SYR IV SCH (09:00)
[2019-05-15] MEDS ORDERED: REVL15CA PO (16:22)
[2019-05-31] MEDS ORDERED: DAPS10TA PO (11:03)
== END 2019-05-14 16:40 | disposition home or self-care (01) ==
LOC: M INFU 11:56
PROVIDERS: ATTEND Internal Medicine Medical Oncology
DX: Z51.11 Encounter for antineoplastic chemotherapy (principal); C90.00 Multiple myeloma not having achieved remission; D64.9 Anemia, unspecified; G62.9 Polyneuropathy, unspecified; R06.02 Shortness of breath; Z85.038 Personal history of other malignant neoplasm of large intestine; Z79.899 Other long term (current) drug therapy
CPT/HCPCS: 36415; 36430; 36591; 71275; 80053; 85027; 85049; 85055; 85652; 86850; 86900; 86901; 86920; 87040; 96372; G0463; J1442; J1642; P9016; Q9967

== ENCOUNTER → 2019-05-14 | Outpatient (CLI) | payer MEDICARE, OTHER ==
[~2019-05-14] MED LIST changes: +ISOVUE-370 76% 100ML VIAL (Q9967) As Ordered ONE; -LIDOCAINE 1% MDV 20ML VIAL As Ordered ONE; -MIDAZOLAM INJ 2 MG/2 ML VIAL (J2250) As Ordered ONE; +REVL15CA PO; +TRIA1CR80 TOP; -ceFAZolin 1GM INJ (J0690 PER 500MG) As Ordered ONE; -diphenhydrAMINE INJ 50MG/ML VIAL (J1200) As Ordered ONE; -fentaNYL 100 MCG/2 ML INJECTION (J3010) As Ordered ONE
--- NOTE | 2019-05-14 10:39 | REP ---
CT of the chest with IV contrast, CT pulmonary angiography: Comparison is 10/05/2018. There are no emboli in the pulmonary trunk or central pulmonary arteries. There are no emboli in the pulmonary lobe or segment branches. There are no infiltrates or pleural effusions. There are no lung masses or nodules. There is no mediastinal, hilar or axillary lymphadenopathy. The thoracic aorta is unremarkable. Cardiac size is normal. There is no pericardial effusion. The visualized upper abdominal contents are unremarkable. Impression: Essentially negative CT study of the chest. There are no pulmonary emboli. There are no infiltrates, pleural effusions, masses or adenopathy. Electronically Signed by Les Sun MD 05/14/2019 10:31 A
== END ==
LOC: M RAD 09:53
PROVIDERS: ATTEND Internal Medicine Medical Oncology
DX: R06.02 Shortness of breath (principal)

== ENCOUNTER → 2019-05-15 | Outpatient (POV) | payer MEDICARE, OTHER ==
--- NOTE | 2019-05-09 08:10 | IRPN ---
[facility] IR Progress Note IR Progress Note DATE: May 08, 2019 No show Allergies Coded Allergies: No Known Allergies (Unverified , 07/20/18) DIANA ZAPATA MD May 09, 2019 08:10
[~2019-05-15] VITALS: Ht 188 cm; Wt 119.1 kg
[~2019-05-15] MED LIST changes: -ACETAMINOPHEN TAB 650MG DOSE (2X325MG) PO SCH; +REVL15CA PO; +TRIA1CR80 TOP; -diphenhydrAMINE 25 MG CAP PO SCH
[2019-05-15 13:00] VITALS: BP 169/98
--- NOTE | 2019-05-16 08:07 | IRPN ---
[facility] IR Progress Note IR Progress Note DATE: May 15, 2019 FOLLOW-UP: Few weeks status post right chest wall port placement. No fevers or chills. No pain, discomfort or discharge from site. ON EXAMINATION: Right port site healing well. No redness, tenderness, fluctuance or discharge. Dissolvable suture will dissolve. IMPRESSION: Port site healing well status post placement. No further follow-up scheduled unless initiated by patient or referring provider. Thank you for this referral Allergies Coded Allergies: No Known Allergies (Unverified , 07/20/18) VS,Fishbone, I+O VS, Fishbone, I+O Vital Signs Date Time Temp Pulse Resp B/P (MAP) Pulse Ox O2 Delivery O2 Flow Rate FiO2 05/15/19 13:00 97.0 58 18 169/98 (121) 97 Room Air DIANA ZAPATA MD May 16, 2019 08:07
== END ==
LOC: M IRPOV 12:55
PROVIDERS: ATTEND Radiology Diagnostic Radiology
DX: Z45.2 Encounter for adjustment and management of vascular access device (principal)

== ENCOUNTER 2019-06-15 10:53 | Inpatient (IN) | payer MEDICARE, OTHER ==
[~2019-06-15] VITALS: Ht 188 cm; Wt 118.6 kg
[~2019-06-15 10:53] MED LIST changes: +DAPS10TA PO; +HYDR12.55 PO
[2019-06-15 12:04] LABS: VENOUS BASE EXCESS -3.1 (-2.0-2.0); VENOUS HCO3 20.8 MEQ/L (23.0-27.0); VENOUS O2 SATURATION 94.2 % (60.0-80.0); VENOUS PARTIAL PRESSURE CO2 32.6 mmHg (38.0-50.0); VENOUS PARTIAL PRESSURE O2 78.1 mmHg (30.0-50.0); VENOUS PH 7.422 UNITS (7.330-7.430); VENOUS STANDARD HCO3 21.8 MEQ/L; VENOUS TOTAL CO2 21.8 MEQ/L (24.0-28.0)
--- NOTE | 2019-06-15 12:14 | REP ---
CHEST, TWO VIEWS: Two views of the chest are performed and compared to a prior study 04/19/2019. I see no acute infiltrate. Lungs are unchanged in appearance. The heart is normal in size. Mediastinal silhouette is unchanged. Right central venous catheter is seen. The tip is in the superior vena cava. There are degenerative changes of the spine. IMPRESSION: No evidence of acute infiltrate. Electronically Signed by Les Britt MD 06/15/2019 12:21 P
[2019-06-15 12:19] LABS: INR 1.21
[2019-06-15 12:48] LABS: CK-MB VALUE MASS < 1.0 NG/ML (<3.6); CPK CREATINE PHOSPHOKINASE 66 U/L (39-308); MB/CK RELATIVE INDEX 1.52 (< OR =4); NT-PRO BNP 112 PG/ML (<125); TROPONIN I < 0.02 NG/ML (< 0.10)
[2019-06-15] MEDS ORDERED: ISOVUE-370 76% 100ML VIAL (Q9967) As Ordered ONE (13:04)
--- NOTE | 2019-06-15 13:31 | REP ---
CT of the chest with IV contrast, CT pulmonary angiography: Comparison is 05/14/2019. There are no emboli in the pulmonary trunk or central pulmonary arteries. There are no emboli in the pulmonary artery lobe or segment branches. There are multiple subsegmental infiltrates as an interval change in the anterior inferior right upper lobe and in the lower lobes bilaterally. There are no pleural effusions. There is no mediastinal, hilar or axillary lymph node enlargement. The thoracic aorta is unremarkable. Cardiac size is normal. There is no pericardial effusion. The visualized upper abdominal contents are unremarkable. Impression: There are no pulmonary emboli. There are patchy subsegmental infiltrates in the right upper lobe and in the lower lobes bilaterally as a change from the prior study. There are no pleural effusions. There is no adenopathy. Electronically Signed by Les Sun MD 06/15/2019 01:23 P
[2019-06-15] MEDS ORDERED: cefTRIAXone SOD 2 GM in D5W MINI-BAG PLUS 50 ML IV ONE (13:45)
[2019-06-15] MEDS ORDERED: DEXTROSE 50% 50 ML SYRINGE IV PRN (15:45)
[2019-06-15] MEDS ORDERED: GLUCOSE 4 GM CHEW TABLET PO PRN (15:45)
[2019-06-15] MEDS ORDERED: GLUCAGON FOR INJ 1 MG VIAL (J1610) SC PRN (15:45)
--- NOTE | 2019-06-15 16:35 | HPEPDOC ---
General Date of Admission Jun 15, 2019 at 15:38 Date of Service: Jun 15, 2019 Chief Complaint The patient is a 69-year-old male admitted with a reason for visit of Igg Multiple Myeloma Pneumonia. Source: Patient, RN/, Old records History of Present Illness 69 year old male with PMH of IgG multiple myeloma currently on chemotherapy on second cycle with carfilzomib on tuesday and tuesday, Dexamethasone high dose every week on tuesday night, revlimid daily went to the oncology clinic for increasing SOB for the past 1 week which has been worst in the past 2 days when he could hardly make it to the bathroom . He would have to go and use the bathroom sitting down as he would be too sob to stand up. He normal goes to the bathroom every 2 hours as he has to drink a lot of fluid due to his chemo medications. He also noted some congestion and cough which sounds wet but unable to bring any phlegm up. Denies any sick contacts. He is not hypoxic at rest or ambulation but does become tachypneic. CT chest with contrast showed There are no pulmonary emboli. There are patchy subsegmental infiltrates in the right upper lobe and in the lower lobes bila terally as a change from the prior study. There are no pleural effusions. There is no adenopathy Patient was admitted for Pneumonia Home Medications Scheduled Allopurinol (Zyloprim) 300 Mg Tablet, 1 TAB PO DAILY Atorvastatin Calcium (Atorvastatin Calcium) 40 Mg Tab, 40 MG PO DAILY, (Reported) Carvedilol (Carvedilol) 25 Mg Tab, 12.5 MG PO BID, (Reported) Dapsone (Dapsone) 100 Mg Tablet, 1 TAB PO DAILY Dexamethasone (Decadron) 4 Mg Tablet, 4 MG PO as directed 10 tabs weekly for 4 cycles then 5 tabs weekly Enoxaparin Sodium (Lovenox) 40 Mg/0.4 Ml Syringe, 40 MG SC DAILY for dvt prophylaxis inject 40 mg subcutaneously daily Esomeprazole Magnesium (Nexium) 40 Mg Cap, 40 MG PO DAILY, (Reported) Icosapent Ethyl (Vascepa) 1 Gm Cap, 2 GM PO BID, (Reported) Lenalidomide (Revlimid) 15 Mg Capsule, 15 MG PO DAILY TAKE 1 TAB DAILY ON DAYS 15-21 to complete cycle 2, THEN TAKE 7 DAYS OFF Lisinopril (Lisinopril) 10 Mg Tablet, 1 TAB PO DAILY, (Reported) Metformin HCl (Metformin HCl ER) 750 Mg Tab, 1,500 MG PO DAILY, (Reported) Multivitamin with Minerals (Multiple Vitamin) 1 Each Tablet, 1 TAB PO DAILY, (Reported) Triamcinolone Acet (Triamcinolone Acetonide 0.1% Crm) 80 Gm Cream..g., 1 APLCT TOP BID Valacyclovir HCl (Valtrex) 500 Mg Tablet, 1 TAB PO DAILY Scheduled PRN Hydrochlorothiazide (Hydrochlorothiazide) 12.5 Mg Tablet, 12.5 MG PO DAILYPRN PRN for FLUID RETENTION Prochlorperazine Maleate (Prochlorperazine Maleate) 10 Mg Tablet, 10 MG PO Q8H PRN for NAUSEA OR VOMITING Allergies Coded Allergies: sulfamethoxazole (Verified Allergy, Severe, SHORTNESS OF BREATH, 06/15/19) Past Medical History Medical History IgG Multiple Myeloma diagnosed in Mar 2020 on chemotherapy TYPE 2 DIABETES MELLITUS WITHOUT COMPLICATIONS MIXED HYPERLIPIDEMIA HISTORY OF STAGE 2 COLON CANCER s/p hemicolectomy in 2013 NONALCOHOLIC STEATOHEPATITIS (TRAVIS) GASTRO-ESOPHAGEAL REFLUX DISEASE WITHOUT ESOPHAGITIS SLEEP APNEA, UNSPECIFIED ANXIETY HEREDITARY AND IDIOPATHIC NEUROPATHY, UNSPECIFIED ESSENTIAL (PRIMARY) HYPERTENSION OSTEOARTHRITIS OF BOTH KNEES PULMONARY NODULE ELEVATED PSA Hyperuricemia Family History Significant Family History: Cancer (father esophageal cancer, brother plasma cell leukaemia, another brother with colon cancer) Social History * Smoker: former Smoker Alcohol: Denies Drugs: denies A-FIB/CHADSVASC A-FIB History Current/History of A-Fib/PAF?: No Review of Systems Constitutional: Reports: Weakness, Fatigue; Denies: Chills, Fever, Night Sweats Eyes: Denies: Pain, Vision change ENT: Reports: Sinus Congestion Skin: Reports: Rash, Dry Pulmonary: Reports: Dyspnea, Cough Cardiovascular: Reports: Lt Headedness; Denies: Chest Pain, Palpitations, Orthopnea, Paroxysmal Noc. Dyspnea Gastrointestinal: Denies: Nausea, Vomiting, Abdominal Pain, Diarrhea Genitourinary: Reports: Frequency Hematologic: Denies: Bruising, Bleeding Excessively Musculoskeletal: Denies: Neck Pain, Back Pain, Joint Pain, Muscle Pain, Spasms Neurological: Denies: Weakness, Numbness, Change in speech, Confusion Psych: Reports: Anxiety Physical Examination General Exam: Positive: Alert, Cooperative, No Acute Distress Eye Exam: Positive: PERRLA, Conjunctiva & lids normal, EOMI; Negative: Sclera icteric ENT Exam: Positive: Atraumatic, Mucous membr. moist/pink, Pharynx Normal Neck Exam: Positive: Supple; Negative: JVD, thyromegaly Chest Exam: Positive: Clear to auscultation, Normal air movement Heart Exam: Positive: Rate Normal, Regular Rhythm, Normal S1, Normal S2; Negative: Murmurs, Rubs Telemetry: Positive: No significant arrhythmia Abdomen Exam: Positive: Normal bowel sounds, Soft; Negative: Tenderness, Hepatospenomegaly Extremity Exam: Positive: Normal pulses; Negative: Clubbing, Cyanosis, Edema Skin Exam: Positive: Rash (dermatitis) Neuro Exam: Positive: Normal Gait, Normal Speech, Cranial Nerves 3-12 NL, Reflexes 2+ Psych Exam: Positive: Mental status NL, Mood NL, Oriented x 3 Laboratory Data Labs 24H Laboratory Tests 2 06/15/19 11:52: Prothrombin Time 15.0H, Prothromb Time International Ratio 1.21, Blood Gas Bica rbonate Standard 21.8, Venous Blood pH 7.422, Venous Blood Partial Pressure CO2 32.6L, Venous Blood Partial Pressure O2 78.1H, Venous Blood Total Carbon Dioxide 21.8L, Venous Blood HCO3 20.8L, Venous Blood Oxygen Saturation 94.2H, Venous Blood Base Excess -3.1L, Total Creatine Kinase 66, Creatine Kinase MB < 1.0, Creatine Kinase MB Relative Index 1.52, Troponin I < 0.02, AY-Qjb-V-Type Natriuretic Peptide 112 06/15/19 14:32: Lactic Acid Level 2.2*H Microbiology Microbiology 06/15/19 Blood Culture, Received Pending 06/15/19 Blood Culture, Received Pending Assessment/Plan 69 year old male with PMH of IgG multiple myeloma currently on chemotherapy on second cycle with carfilzomib on tuesday and tuesday, Dexamethasone high dose every week on Tuesday night, revlimid daily went to the oncology clinic for increasing SOB for the past 1 week which has been worst in the past 2 days when he could hardly make it to the bathroom . He would have to go and use the bathroom sitting down as he would be too sob to stand up. He normal goes to the bathroom every 2 hours as he has to drink a lot of fluid due to his chemo medications. He also noted some congestion and cough which sounds wet but unable to bring any phlegm up. Denies any sick contacts. He is not hypoxic at rest or ambulation but does become tachypneic. CT chest with contrast showed There are no pulmonary emboli. There are patchy subsegmental infiltrates in the right upper lobe and in the lower lobes bilaterally as a change from the prior study. There are no pleural effusions. There is no adenopathy Patient was admitted for Pneumonia Dyspnea Due to Pneumonia seen in CT chest infiltrates in both the bases and right upper lobe No fever no elevated WBC will give ceftriaxone and azithromycin Discussed with Dr Mak if no improvement with antibiotics will then have to evaluate for fungal infection. No PE in Ct angio of chest Echo in April showed only grade 1 diastolic dysfunction, no clinical signs of fluid overload, BNP normal IgG Multiple Myeloma diagnosed in Mar 2020 on chemotherapy will hold Revlimid and carfilzomib, will continue with dexamethasone every tuesday will continue with dapsone and valtrex. TYPE 2 DIABETES MELLITUS WITHOUT COMPLICATIONS uncontrolled will give levemir and lispro MIXED HYPERLIPIDEMIA continue home meds statin and vascepa HISTORY OF STAGE 2 COLON CANCER s/p hemicolectomy in 2013 says he was told that he was cured GASTRO-ESOPHAGEAL REFLUX DISEASE WITHOUT ESOPHAGITIS continue PPI SLEEP APNEA, UNSPECIFIED may use own CPAP ESSENTIAL (PRIMARY) HYPERTENSION continue lisinopril and coreg Hyperuricemia allopurinol Plan / VTE VTE Prophylaxis Ordered?: Yes RAQUEL GUERIN MD Jun 15, 2019 16:35
[2019-06-15] MEDS: HumaLOG INSULIN (NovoLOG) PER UNIT SC SCH ×2 (17:30→21:39)
[2019-06-15 19:06] VITALS: BP_SYST 139; BP_SYST 142; BP_SYST 162; BP_DIAS 82; BP_DIAS 85; BP_DIAS 96
[2019-06-15] MEDS: CARVedilol 12.5 MG TAB PO SCH (21:40)
[2019-06-15] MEDS: AZITHROMYCIN 250 MG TAB PO SCH (21:40)
[2019-06-15] MEDS: LEVEMIR (INSULIN DETEMIR) 1 UNITS/0.01ML SC SCH (21:40)
[2019-06-15 22:00] VITALS: BP_SYST 138; BP_SYST 155; BP_SYST 156; BP_DIAS 78; BP_DIAS 88; BP_DIAS 89
[2019-06-16 06:00] VITALS: BP 146/87
[2019-06-16 06:42] LABS: HEMATOCRIT 25.3 % (42.0-52.0); HEMOGLOBIN 8.7 g/dl (13.5-17.5); MEAN CORPUSCULAR HEMOGLOBIN 33.5 pg (27.0-33.0); MEAN CORPUSCULAR HGB CONC 34.4 g/dl (32.0-36.5); MEAN CORPUSCULAR VOLUME 97.3 fl (80.0-96.0); PLATELET COUNT, AUTOMATED 197 10^3/uL (150-450); WHITE BLOOD COUNT 5.5 10^3/uL (4.0-10.0)
[2019-06-16 07:01] LABS: BLOOD UREA NITROGEN 15 MG/DL (7-18); CALCIUM LEVEL 8.3 MG/DL (8.8-10.2); CARBON DIOXIDE LEVEL 24 MEQ/L (21-32); CHLORIDE LEVEL 107 MEQ/L (98-107); CREATININE FOR GFR 0.88 MG/DL (0.70-1.30); GLOMERULAR FILTRATION RATE > 60.0 (>49); GLUCOSE, FASTING 208 MG/DL (70-100); POTASSIUM SERUM 3.9 MEQ/L (3.5-5.1); SODIUM LEVEL 137 MEQ/L (136-145)
--- NOTE | 2019-06-16 07:17 | ECGEPIP ---
[facility] - ED Test Date: 2019-06-15 Pat Name: MITZI CHRISTIANSON Department: Room: - Gender: Male Manager Instrumentation: GREG : 1950 Requested By: Alka Jones Order Number: [id number] Reading MD: Alka Jones Measurements Intervals [place] Rate: 73 P: 45 OK: 148 QRS: 15 QRSD: 106 T: 36 QT: 388 QTc: 428 Interpretive Statements SINUS RHYTHM INCOMPLETE RIGHT BUNDLE BRANCH BLOCK SIMILAR 04/20/19 Electronically Signed on 06-16-2019 7:16:57 EST by Alka Jones
[2019-06-16] MEDS: HumaLOG INSULIN (NovoLOG) PER UNIT SC SCH ×4 (08:10→20:20)
[2019-06-16] MEDS: PANTOPRAZOLE 40MG TAB (PROTONIX) PO SCH (08:11)
[2019-06-16] MEDS: allopurinoL 300 MG TAB PO SCH (08:11)
[2019-06-16] MEDS: ATORVASTATIN 20 MG TAB PO SCH (08:11)
[2019-06-16] MEDS: DAPSONE 100 MG TAB PO SCH (08:11)
[2019-06-16] MEDS: CARVedilol 12.5 MG TAB PO SCH ×2 (08:11→20:27)
[2019-06-16] MEDS: valACYclovir HCL 500 MG TAB PO SCH (08:11)
[2019-06-16] MEDS: lisinopriL 10 MG TAB PO SCH (08:11)
[2019-06-16] MEDS: ENOXAPARIN 40 MG/0.4 ML SYRINGE (J1650) SC SCH (08:12)
--- NOTE | 2019-06-16 09:30 | IPNPDOC ---
Text Note Date of Service The patient was seen on 06/16/19. NOTE Subjective: Feels a little better this am. Says his SOB is a little better as he could walk to the bathroom without getting SOB. No fever or chills, no chest pain or cough. No abdominal pain , nausea or vomiting or diarrhea. Physical Exam: Vitals: as below General Exam: Positive: Alert, Cooperative, No Acute Distress Eye Exam: Positive: PERRLA, Conjunctiva & lids normal, EOMI; Negative: Sclera icteric ENT Exam: Positive: Atraumatic, Mucous membr. moist/pink, Pharynx Normal Neck Exam: Positive: Supple; Negative: JVD, thyromegaly Chest Exam: Positive: Clear to auscultation, Normal air movement Heart Exam: Positive: Rate Normal, Regular Rhythm, Normal S1, Normal S2; Negative: Murmurs, Rubs Telemetry: Positive: No significant arrhythmia Abdomen Exam: Positive: Normal bowel sounds, Soft; Negative: Tenderness, Hepatospenomegaly Extremity Exam: Positive: Normal pulses; Negative: Clubbing, Cyanosis, Edema Skin Exam: Positive: Rash (dermatitis) Neuro Exam: Positive: Normal Gait, Normal Speech, Cranial Nerves 3-12 NL, Reflexes 2+ Psych Exam: Positive: Mental status NL, Mood NL, Oriented x 3 Labs and Radiology; Reviewed Assessment and plan: 69 year old male with PMH of IgG multiple myeloma currently on chemotherapy on second cycle with carfilzomib on tuesday and tuesday, Dexamethasone high dose every week on Tuesday night, revlimid daily went to the oncology clinic for increasing SOB for the past 1 week which has been worst in the past 2 days when he could hardly make it to the bathroom . He would have to go and use the bathroom sitting down as he would be too sob to stand up. He normal goes to the bathroom every 2 hours as he has to drink a lot of fluid due to his chemo medications. He also noted some congestion and cough which sounds wet but unable to bring any phlegm up. Denies any sick contacts. He is not hypoxic at rest or ambulation but does become tachypneic. CT chest with contrast showed There are no pulmonary emboli. There are patchy subsegmental infiltrates in the right upper lobe and in the lower lobes bilaterally as a change from the prior study. There are no pleural effusions. There is no adenopathy Patient was admitted for Pneumonia Dyspnea Due to Pneumonia and influenza A seen in CT chest infiltrates in both the bases and right upper lobe viral vs bacterial pneumonia No fever no elevated WBC most probably viral however as patint immunocompromised will cover with antibiotis ceftriaxone and azithromycin Discussed with Dr Mak if no improvement with antibiotics will then have to evaluate for fungal infection. No PE in Ct angio of chest Echo in April showed only grade 1 diastolic dysfunction, no clinical signs of fluid overload, BNP normal Influenza A resp panel came back positive. symptomatic management IgG Multiple Myeloma diagnosed in Mar 2020 on chemotherapy will hold Revlimid and carfilzomib, will continue with dexamethasone every Tuesday will continue with dapsone and valtrex. TYPE 2 DIABETES MELLITUS WITHOUT COMPLICATIONS uncontrolled will give levemir and lispro MIXED HYPERLIPIDEMIA continue home meds statin and vascepa HISTORY OF STAGE 2 COLON CANCER s/p hemicolectomy in 2013 says he was told that he was cured GASTRO-ESOPHAGEAL REFLUX DISEASE WITHOUT ESOPHAGITIS continue PPI SLEEP APNEA, UNSPECIFIED may use own CPAP ESSENTIAL (PRIMARY) HYPERTENSION continue lisinopril and coreg Hyperuricemia allopurinol VS,Fishbone, I+O VS, Fishbone, I+O Laboratory Tests 06/16/19 06:29 Vital Signs Date Time Temp Pulse Resp B/P (MAP) Pulse Ox O2 Delivery O2 Flow Rate FiO2 06/16/19 08:11 146/87 06/16/19 08:11 88 06/16/19 06:00 98.0 18 98 Room Air I&O- Last 24 Hours up to 6 AM 06/16/19 06:00 Intake Total 1270 ml Output Total 1150 ml Balance 120 ml RAQUEL GUERIN MD Jun 16, 2019 09:30
[2019-06-16 14:00] VITALS: BP 140/84
[2019-06-16] MEDS: cefTRIAXone SOD 2 GM in D5W MINI-BAG PLUS 50 ML IV SCH (14:21)
[2019-06-16] MEDS: AZITHROMYCIN 250 MG TAB PO SCH (20:27)
[2019-06-16] MEDS: LEVEMIR (INSULIN DETEMIR) 1 UNITS/0.01ML SC SCH (20:28)
[2019-06-16 22:00] VITALS: BP 147/86
[2019-06-17 06:00] VITALS: BP 148/88
[2019-06-17] MEDS: HumaLOG INSULIN (NovoLOG) PER UNIT SC SCH ×4 (07:30→20:17)
[2019-06-17 07:56] LABS: BASO % 0.7 % (0.0-1.0); EOS # 0.8 10^3/uL (0.0-0.5); EOS % 17.6 % (0.0-3.0); HEMATOCRIT 25.3 % (42.0-52.0); HEMOGLOBIN 8.4 g/dl (13.5-17.5); LYMPH # 0.9 10^3/uL (1.5-5.0); LYMPH % 19.8 % (24.0-44.0); MEAN CORPUSCULAR HEMOGLOBIN 32.9 pg (27.0-33.0); MEAN CORPUSCULAR HGB CONC 33.2 g/dl (32.0-36.5); MEAN CORPUSCULAR VOLUME 99.2 fl (80.0-96.0); MONO # 0.6 10^3/uL (0.0-0.8); MONO % 13.6 % (0.0-5.0); NEUTROPHILS # 2.1 10^3/uL (1.5-8.5); NEUTROPHILS % 46.5 % (36.0-66.0); PLATELET COUNT, AUTOMATED 228 10^3/uL (150-450); RED BLOOD COUNT 2.55 10^6/uL (4.30-6.10); WHITE BLOOD COUNT 4.5 10^3/uL (4.0-10.0)
[2019-06-17] MEDS: SENOKOT S TAB PO SCH ×2 (09:00→20:16)
[2019-06-17] MEDS: MOM 30ML SUSPENSION UDC PO SCH (09:00)
[2019-06-17] MEDS: ENOXAPARIN 40 MG/0.4 ML SYRINGE (J1650) SC SCH (09:12)
[2019-06-17] MEDS: CARVedilol 12.5 MG TAB PO SCH ×2 (09:14→20:17)
[2019-06-17] MEDS: PANTOPRAZOLE 40MG TAB (PROTONIX) PO SCH (09:14)
[2019-06-17] MEDS: allopurinoL 300 MG TAB PO SCH (09:14)
[2019-06-17] MEDS: lisinopriL 10 MG TAB PO SCH (09:15)
[2019-06-17] MEDS: ATORVASTATIN 20 MG TAB PO SCH (09:15)
[2019-06-17] MEDS: DAPSONE 100 MG TAB PO SCH (09:15)
[2019-06-17] MEDS: valACYclovir HCL 500 MG TAB PO SCH (09:15)
[2019-06-17] MEDS ORDERED: FUROSEMIDE 40 MG/4 ML VIAL (J1940) IV ONE (10:00)
--- NOTE | 2019-06-17 11:00 | IPNPDOC ---
Text Note Date of Service The patient was seen on 06/17/19. NOTE Subjective: SOB is better, had walked several times in the corridor yesterday. Today complains of swelling of the hands and arms. Also complains of constipation. No fever or chills. Physical Exam: Vitals: as below General Exam: Positive: Alert, Cooperative, No Acute Distress Eye Exam: Positive: PERRLA, Conjunctiva & lids normal, EOMI; Negative: Sclera icteric ENT Exam: Positive: Atraumatic, Mucous membr. moist/pink, Pharynx Normal Neck Exam: Positive: Supple; Negative: JVD, thyromegaly Chest Exam: Positive: Clear to auscultation, Normal air movement Heart Exam: Positive: Rate Normal, Regular Rhythm, Normal S1, Normal S2; Negative: Murmurs, Rubs Telemetry: Positive: No significant arrhythmia Abdomen Exam: Positive: Normal bowel sounds, Soft; Negative: Tenderness, Hepatospenomegaly Extremity Exam: Positive: Normal pulses; Negative: Clubbing, Cyanosis, Edema Skin Exam: Positive: Rash (dermatitis) Neuro Exam: Positive: Normal Gait, Normal Speech, Cranial Nerves 3-12 NL, Reflexes 2+ Psych Exam: Positive: Mental status NL, Mood NL, Oriented x 3 Labs and Radiology; Reviewed Assessment and plan: 69 year old male with PMH of IgG multiple myeloma currently on chemotherapy on second cycle with carfilzomib on tuesday and tuesday, Dexamethasone high dose every week on Tuesday night, revlimid daily went to the oncology clinic for increasing SOB for the past 1 week which has been worst in the past 2 days when he could hardly make it to the bathroom . He would have to go and use the bathroom sitting down as he would be too sob to stand up. He normal goes to the bathroom every 2 hours as he has to drink a lot of fluid due to his chemo medications. He also noted some congestion and cough which sounds wet but unable to bring any phlegm up. Denies any sick contacts. He is not hypoxic at rest or ambulation but does become tachypneic. CT chest with contrast showed There are no pulmonary emboli. There are patchy subsegmental infiltrates in the right upper lobe and in the lower lobes bilaterally as a change from the prior study. There are no pleural effusions. There is no adenopathy Patient was admitted for Pneumonia Dyspnea Due to Pneumonia and influenza A seen in CT chest infiltrates in both the bases and right upper lobe viral vs bacterial pneumonia No fever no elevated WBC most probably viral however as patient immunocompromis ed will cover with antibiotics ceftriaxone and azithromycin Discussed with Dr Mak if no improvement with antibiotics will then have to evaluate for fungal infection. No PE in Ct angio of chest Echo in April showed only grade 1 diastolic dysfunction, no clinical signs of fluid overload, BNP normal Influenza A resp panel came back positive. symptomatic management IgG Multiple Myeloma diagnosed in Mar 2020 on chemotherapy will hold Revlimid and carfilzomib, will continue with dexamethasone every Tuesday will continue with dapsone and valtrex. TYPE 2 DIABETES MELLITUS WITHOUT COMPLICATIONS uncontrolled will give levemir and lispro MIXED HYPERLIPIDEMIA continue home meds statin and vascepa HISTORY OF STAGE 2 COLON CANCER s/p hemicolectomy in 2013 says he was told that he was cured GASTRO-ESOPHAGEAL REFLUX DISEASE WITHOUT ESOPHAGITIS continue PPI SLEEP APNEA, UNSPECIFIED may use own CPAP ESSENTIAL (PRIMARY) HYPERTENSION continue lisinopril and coreg Hyperuricemia allopurinol VS,Fishbone, I+O VS, Fishbone, I+O Laboratory Tests 06/17/19 07:24 Vital Signs Date Time Temp Pulse Resp B/P (MAP) Pulse Ox O2 Delivery O2 Flow Rate FiO2 06/17/19 09:15 148/88 06/17/19 09:14 87 06/17/19 06:00 98.2 20 97 Room Air I&O- Last 24 Hours up to 6 AM 06/17/19 06:00 Intake Total 2350 ml Output Total 1400 ml Balance 950 ml RAQUEL GUERIN MD Jun 17, 2019 11:00
[2019-06-17 14:00] VITALS: BP 151/81
[2019-06-17] MEDS: cefTRIAXone SOD 2 GM in D5W MINI-BAG PLUS 50 ML IV SCH (15:43)
[2019-06-17] MEDS: AZITHROMYCIN 250 MG TAB PO SCH (20:16)
[2019-06-17] MEDS: LEVEMIR (INSULIN DETEMIR) 1 UNITS/0.01ML SC SCH (20:16)
[2019-06-17 22:00] VITALS: BP 147/85
[2019-06-18] VITALS (9 sets, daily range): BP systolic 110–155; BP diastolic 69–85
[2019-06-18] MEDS: DAPSONE 100 MG TAB PO SCH (08:09)
[2019-06-18] MEDS: PANTOPRAZOLE 40MG TAB (PROTONIX) PO SCH (08:09)
[2019-06-18] MEDS: SENOKOT S TAB PO SCH (08:09)
[2019-06-18] MEDS: MOM 30ML SUSPENSION UDC PO SCH (08:09)
[2019-06-18] MEDS: ATORVASTATIN 20 MG TAB PO SCH (08:09)
[2019-06-18] MEDS: lisinopriL 10 MG TAB PO SCH (08:10)
[2019-06-18] MEDS: allopurinoL 300 MG TAB PO SCH (08:11)
[2019-06-18] MEDS: CARVedilol 12.5 MG TAB PO SCH (08:11)
[2019-06-18] MEDS: valACYclovir HCL 500 MG TAB PO SCH (08:11)
[2019-06-18] MEDS: HumaLOG INSULIN (NovoLOG) PER UNIT SC SCH ×3 (08:12→17:05)
[2019-06-18] MEDS: ENOXAPARIN 40 MG/0.4 ML SYRINGE (J1650) SC SCH (08:12)
[2019-06-18 08:15] LABS: BASO # 0.1 10^3/uL (0.0-0.2); BASO % 1.1 % (0.0-1.0); EOS # 0.9 10^3/uL (0.0-0.5); HEMATOCRIT 26.7 % (42.0-52.0); HEMOGLOBIN 8.8 g/dl (13.5-17.5); LYMPH # 0.8 10^3/uL (1.5-5.0); LYMPH % 19.1 % (24.0-44.0); MEAN CORPUSCULAR HEMOGLOBIN 33.6 pg (27.0-33.0); MEAN CORPUSCULAR VOLUME 101.9 fl (80.0-96.0); MONO # 0.7 10^3/uL (0.0-0.8); MONO % 14.8 % (0.0-5.0); NEUTROPHILS # 1.9 10^3/uL (1.5-8.5); NEUTROPHILS % 43.8 % (36.0-66.0); PLATELET COUNT, AUTOMATED 265 10^3/uL (150-450); RED BLOOD COUNT 2.62 10^6/uL (4.30-6.10); WHITE BLOOD COUNT 4.4 10^3/uL (4.0-10.0)
[2019-06-18 08:43] LABS: BLOOD UREA NITROGEN 23 MG/DL (7-18); CALCIUM LEVEL 8.3 MG/DL (8.8-10.2); CARBON DIOXIDE LEVEL 23 MEQ/L (21-32); CHLORIDE LEVEL 107 MEQ/L (98-107); CREATININE FOR GFR 1.05 MG/DL (0.70-1.30); GLOMERULAR FILTRATION RATE > 60.0 (>49); GLUCOSE, FASTING 276 MG/DL (70-100); POTASSIUM SERUM 4.4 MEQ/L (3.5-5.1); SODIUM LEVEL 138 MEQ/L (136-145)
[2019-06-18 09:39] LABS: EOS % 20.5 % (0.0-3.0)
[2019-06-18] MEDS ORDERED: FUROSEMIDE 40 MG/4 ML VIAL (J1940) IV ONE (15:00)
[2019-06-18] MEDS: cefTRIAXone SOD 2 GM in D5W MINI-BAG PLUS 50 ML IV SCH (15:00)
[2019-06-18] MEDS ORDERED: AZIT500T5 PO (15:03)
[2019-06-18] MEDS ORDERED: CEFD300CAP PO (15:03)
--- NOTE | 2019-06-19 19:39 | DS.PDOC ---
Discharge Summary General Date of Admission Jun 15, 2019 at 15:38 Date of Discharge 06/18/19 Discharge Summary PROCEDURES PERFORMED DURING STAY: [None]. DISCHARGE DIAGNOSES: Influenza A Post influenza pneumonia Acute on chronic anemia IgG Multiple Myeloma diagnosed in Mar 2020 on chemotherapy SECONDARY DIAGNOSIS: TYPE 2 DIABETES MELLITUS WITHOUT COMPLICATIONS MIXED HYPERLIPIDEMIA HISTORY OF STAGE 2 COLON CANCER s/p hemicolectomy in 2014 NONALCOHOLIC STEATOHEPATITIS (TRAVIS) GASTRO-ESOPHAGEAL REFLUX DISEASE WITHOUT ESOPHAGITIS SLEEP APNEA on CPAP ANXIETY HEREDITARY AND IDIOPATHIC NEUROPATHY, UNSPECIFIED ESSENTIAL (PRIMARY) HYPERTENSION OSTEOARTHRITIS OF BOTH KNEES PULMONARY NODULE ELEVATED PSA Hyperuricemia COMPLICATIONS/CHIEF COMPLAINT: Igg Multiple Myeloma Pneumonia. HISTORY OF PRESENT ILLNESS: See history and physical HOSPITAL COURSE: 69 year old male with PMH of IgG multiple myeloma currently on chemotherapy on second cycle with carfilzomib on tuesday and tuesday, Dexamethasone high dose every week on Tuesday night, revlimid daily went to the oncology clinic for increasing SOB for the past 1 week which has been worst in the past 2 days when he could hardly make it to the bathroom . He would have to go and use the bathroom sitting down as he would be too sob to stand up. He normal goes to the bathroom every 2 hours as he has to drink a lot of fluid due to his chemo medications. He also noted some congestion and cough which sounds wet but unable to bring any phlegm up. Denies any sick contacts. He is not hypoxic at rest or ambulation but does become tachypneic. CT chest with contrast showed There are no pulmonary emboli. There are patchy subsegmental infiltrates in the right upper lobe and in the lower lobes bilaterally as a change from the prior study. There are no pleural effusions. T here is no adenopathy Patient was admitted for Pneumonia Dyspnea Due to Pneumonia and influenza A seen in CT chest infiltrates in both the bases and right upper lobe viral vs bacterial pneumonia No fever no elevated WBC most probably viral however as patient immunocompromised will cover with antibiotics ceftriaxone and azithromycin Discussed with Dr Mak if no improvement with antibiotics will then have to evaluate for fungal infection. No PE in Ct angio of chest Echo in April showed only grade 1 diastolic dysfunction, no clinical signs of fluid overload, BNP normal Influenza A resp panel came back positive. symptomatic management IgG Multiple Myeloma diagnosed in Mar 2020 on chemotherapy will hold Revlimid and carfilzomib, will continue with dexamethasone every Tuesday will continue with dapsone and valtrex. Acute on chronic anemia 2 units of PRBC received. TYPE 2 DIABETES MELLITUS WITHOUT COMPLICATIONS uncontrolled will give levemir and lispro MIXED HYPERLIPIDEMIA continue home meds statin and vascepa HISTORY OF STAGE 2 COLON CANCER s/p hemicolectomy in 2013 says he was told that he was cured GASTRO-ESOPHAGEAL REFLUX DISEASE WITHOUT ESOPHAGITIS continue PPI SLEEP APNEA, UNSPECIFIED may use own CPAP ESSENTIAL (PRIMARY) HYPERTENSION continue lisinopril and coreg Hyperuricemia allopurinol DISCHARGE MEDICATIONS: Please see below. ALLERGIES: Please see below. PHYSICAL EXAMINATION ON DISCHARGE: VITAL SIGNS: Please see below. General Exam: Positive: Alert, Cooperative, No Acute Distress Eye Exam: Positive: PERRLA, Conjunctiva & lids normal, EOMI; Negative: Sclera icteric ENT Exam: Positive: Atraumatic, Mucous membr. moist/pink, Pharynx Normal Neck Exam: Positive: Supple; Negative: JVD, thyromegaly Chest Exam: Positive: Clear to auscultation, Normal air movement Heart Exam: Positive: Rate Normal, Regular Rhythm, Normal S1, Normal S2; Negative: Murmurs, Rubs Telemetry: Positive: No significant arrhythmia Abdomen Exam: Positive: Normal bowel sounds, Soft; Negative: Tenderness, Hepatospenomegaly Extremity Exam: Positive: Normal pulses; Negative: Clubbing, Cyanosis, Edema Skin Exam: Positive: Rash (dermatitis) Neuro Exam: Positive: Normal Gait, Normal Speech, Cranial Nerves 3-12 NL, Reflexes 2+ Psych Exam: Positive: Mental status NL, Mood NL, Oriented x 3 LABORATORY DATA: Please see below. ACTIVITY: [As tolerated]. DIET: regular DISPOSITION: 01 Home, Self-Care. DISCHARGE INSTRUCTIONS: Follow up with Dr Mak Follow up with PMD in 1 to 2 weeks. DISCHARGE CONDITION: [Stable]. TIME SPENT ON DISCHARGE: 35 minutes. Vital Signs/I&Os Vital Signs Date Time Temp Pulse Resp B/P (MAP) Pulse Ox O2 Delivery O2 Flow Rate FiO2 06/18/19 18:40 98.2 79 18 124/74 96 Room Air 06/18/19 17:07 96.0 I&O- Last 24 Hours up to 6 AM 06/19/19 06:00 Intake Total 1450 ml Output Total 1 ml Balance 1449 ml Microbiology Microbiology 06/16/19 Gram Stain - Final, Complete 06/16/19 Sputum Culture - Final, Complete 06/15/19 Respiratory Virus Panel (PCR) (CLARA) - Final, Complete INFLUENZA A (no subtype) 06/15/19 Blood Culture - Preliminary, Resulted No Growth after 72 hours. All specime... 06/15/19 Blood Culture - Preliminary, Resulted No Growth after 72 hours. All specime... Discharge Medications Scheduled Allopurinol (Zyloprim) 300 Mg Tablet, 1 TAB PO DAILY Atorvastatin Calcium (Atorvastatin Calcium) 40 Mg Tab, 40 MG PO DAILY, (Reported) Azithromycin (Azithromycin) 500 Mg Tablet, 1 TAB PO QHS Carvedilol (Carvedilol) 25 Mg Tab, 12.5 MG PO BID, (Reported) Cefdinir (Cefdinir) 300 Mg Capsule, 1 CAP PO BID Dapsone (Dapsone) 100 Mg Tablet, 1 TAB PO DAILY Dexamethasone (Decadron) 4 Mg Tablet, 4 MG PO as directed 10 tabs weekly for 4 cycles then 5 tabs weekly Enoxaparin Sodium (Lovenox) 40 Mg/0.4 Ml Syringe, 40 MG SC DAILY for dvt prophylaxis inject 40 mg subcutaneously daily Esomeprazole Magnesium (Nexium) 40 Mg Cap, 40 MG PO DAILY, (Reported) Icosapent Ethyl (Vascepa) 1 Gm Cap, 2 GM PO BID, (Reported) Lenalidomide (Revlimid) 15 Mg Capsule, 15 MG PO DAILY TAKE 1 TAB DAILY ON DAYS 15-21 to complete cycle 2, THEN TAKE 7 DAYS OFF Lisinopril (Lisinopril) 10 Mg Tablet, 1 TAB PO DAILY, (Reported) Metformin HCl (Metformin HCl ER) 750 Mg Tab, 1,500 MG PO DAILY, (Reported) Multivitamin with Minerals (Multiple Vitamin) 1 Each Tablet, 1 TAB PO DAILY, (Reported) Triamcinolone Acet (Triamcinolone Acetonide 0.1% Crm) 80 Gm Cream..g., 1 APLCT TOP BID Valacyclovir HCl (Valtrex) 500 Mg Tablet, 1 TAB PO DAILY Scheduled PRN Hydrochlorothiazide (Hydrochlorothiazide) 12.5 Mg Tablet, 12.5 MG PO DAILYPRN PRN for FLUID RETENTION Prochlorperazine Maleate (Prochlorperazine Maleate) 10 Mg Tablet, 10 MG PO Q8H PRN for NAUSEA OR VOMITING Allergies Coded Allergies: sulfamethoxazole (Verified Allergy, Severe, SHORTNESS OF BREATH, 06/15/19) RAQUEL GUERIN MD Jun 19, 2019 19:39
== END 2019-06-18 19:10 | disposition home or self-care (01) | DRG 194 ==
LOC: M ED 10:53 → M ED INP 15:38 → ENRESERV 16:03 → M MS5PR 16:45
PROVIDERS: ADMIT Internal Medicine Nephrology; ATTEND Internal Medicine Nephrology
PROC: 30233N1 Transfusion of Nonautologous Red Blood Cells into Peripheral Vein, Percutaneous Approach (ICD-10-PCS; principal; 2019-06-18)
DX: J10.01 Influenza due to other identified influenza virus with the same other identified influenza virus pneumonia (principal); C90.00 Multiple myeloma not having achieved remission; E11.65 Type 2 diabetes mellitus with hyperglycemia; E78.2 Mixed hyperlipidemia; K75.81 Nonalcoholic steatohepatitis (NASH); K21.9 Gastro-esophageal reflux disease without esophagitis; G47.30 Sleep apnea, unspecified; F41.9 Anxiety disorder, unspecified; J18.9 Pneumonia, unspecified organism; G60.9 Hereditary and idiopathic neuropathy, unspecified; I10 Essential (primary) hypertension; D64.9 Anemia, unspecified; M17.0 Bilateral primary osteoarthritis of knee; R97.20 Elevated prostate specific antigen [PSA]; E79.0 Hyperuricemia without signs of inflammatory arthritis and tophaceous disease; Z87.891 Personal history of nicotine dependence; Z79.84 Long term (current) use of oral hypoglycemic drugs; Z79.899 Other long term (current) drug therapy; Z88.2 Allergy status to sulfonamides; Z85.038 Personal history of other malignant neoplasm of large intestine; Z90.49 Acquired absence of other specified parts of digestive tract

== ENCOUNTER → 2019-10-02 | Outpatient (REF) | payer MEDICARE, OTHER ==
[~2019-10-02] MED LIST changes: +AUGM0.0512; +AZIT500T5 PO; +CARA1TAB6 PO; +CEFD300CAP PO; +GLIP5TAB20 PO
[2019-10-02 09:47] LABS: CHOLESTEROL RISK RATIO 3.636 (<5); PROSTATIC SPECIFIC AG MONITOR 4.38 NG/ML (< 4.00)
== END ==
LOC: M SFHCPLAZ 08:49
PROVIDERS: ATTEND Internal Medicine
DX: E11.9 Type 2 diabetes mellitus without complications (principal); E78.2 Mixed hyperlipidemia; Z85.038 Personal history of other malignant neoplasm of large intestine; R97.20 Elevated prostate specific antigen [PSA]

== ENCOUNTER → 2019-10-23 | Outpatient (REF) | payer MEDICARE, OTHER ==
[~2019-10-23] MED LIST changes: -ASPI81TA85 PO; +ASPI81TA86 PO; +D31000TA2 PO; +ELIQ2.5T PO; +GLIP5TAB8 PO; +MAGN400T3 PO; +PHOS1POW PO; +REVL20CA PO; +VITA50005 PO; +XGEVINJ SC; +[UNRECOGNIZED DRUG - CODE] IV
== END ==
LOC: M LAB REF 08:53
PROVIDERS: ATTEND Internal Medicine
DX: E11.9 Type 2 diabetes mellitus without complications (principal)

== ENCOUNTER 2020-02-15 11:27 | Observation (INO) | payer MEDICARE, OTHER ==
[~2020-02-15] VITALS: Ht 188 cm; Wt 120.1 kg
[2020-02-15] VITALS (11 sets, daily range): BP systolic 142–179; BP diastolic 68–86
[~2020-02-15 11:27] MED LIST changes: -GLIP5TAB8 PO; -XGEVINJ SC; -[UNRECOGNIZED DRUG - CODE] IV
--- NOTE | 2020-02-15 12:08 | REP ---
INDICATION: DYSPNEA/COUGH. COMPARISON: Comparison chest x-ray June 15, 2019.. TECHNIQUE: Two views. Upright AP radiographs. FINDINGS: A right-sided [id number] catheter is seen in place with its tip in the expected location of the superior vena cava. Monitoring electrodes are seen. The lungs are well inflated and free of infiltrate. The pleural angles are sharp. Cardiomediastinal silhouette is otherwise unremarkable. There are degenerative changes in the thoracic spine. IMPRESSION: [id number] catheter. No acute disease. <Electronically signed by Felipe Gee > 02/15/20 [id number]
[2020-02-15 12:34] LABS: HEMATOCRIT 22.6 % (42.0-52.0); HEMOGLOBIN 7.4 g/dl (13.5-17.5); MEAN CORPUSCULAR HEMOGLOBIN 35.7 pg (27.0-33.0); MEAN CORPUSCULAR HGB CONC 32.7 g/dl (32.0-36.5); MEAN CORPUSCULAR VOLUME 109.2 fl (80.0-96.0); PLATELET COUNT, AUTOMATED 137 10^3/uL (150-450); RED BLOOD COUNT 2.07 10^6/uL (4.30-6.10); WHITE BLOOD COUNT 3.8 10^3/uL (4.0-10.0)
[2020-02-15 12:46] LABS: INR 1.18; PROTHROMBIN TIME 15.3 SECONDS (12.5-14.3)
[2020-02-15 12:47] LABS: PARTIAL THROMBOPLASTIN TIME 24.5 SECONDS (24.2-38.5)
[2020-02-15 13:06] LABS: ALBUMIN 3.8 GM/DL (3.2-5.2); BILIRUBIN,DIRECT 0.4 MG/DL (0.0-0.2); FREE T4 0.96 NG/DL (0.76-1.46); MAGNESIUM LEVEL 1.8 MG/DL (1.8-2.4); THYROID STIMULATING HORMONE 0.795 uIU/ML (0.358-3.740); TOTAL PROTEIN 5.7 GM/DL (6.4-8.2)
[2020-02-15] MEDS ORDERED: ISOVUE-370 76% 100ML VIAL As Ordered ONE (13:06)
[2020-02-15 13:11] LABS: BASOPHILS 2 % (0-1); EOSINOPHILS 2 % (0-3); LYMPHOCYTES 22 % (16-44); METAMYELOCYTES 2 % (0-0); MONOCYTES 7 % (0-5); NEUTROPHILS 57 % (28-66)
[2020-02-15 13:13] LABS: ANISOCYTOSIS 2+; POLYCHROMASIA 2+
[2020-02-15 13:15] LABS: PLATELET ESTIMATE NORMAL (NORMAL)
--- NOTE | 2020-02-15 13:48 | REP ---
INDICATION: sob ro pe. COMPARISON: 06/15/2019. TECHNIQUE: CT angiogram chest performed following the intravenous administration of 100 cc of Isovue 370. Sagittal and coronal reconstruction images are performed. FINDINGS: Lungs: There is no acute infiltrate. Multiple calcified granulomas are seen bilaterally. There is mild bibasilar interstitial fibrotic change. Mediastinum: No adenopathy. Pulmonary arteries: No evidence of pulmonary embolism. Misty: No adenopathy. Axilla: No adenopathy. Pleura: No effusion. Heart: Not enlarged. Thoracic aorta: No aneurysm or dissection. Upper abdominal structures: There is a small hiatal hernia. Visualized osseous structures: There are degenerative changes of the spine without compression deformity. IMPRESSION: No CT evidence of pulmonary embolism.No infiltrate seen. <Electronically signed by Les Britt > 02/15/20 [id number]
[2020-02-15] MEDS ORDERED: ACETAMINOPHEN TAB 650MG DOSE (2X325MG) PO PRN (15:15)
[2020-02-15] MEDS ORDERED: [UNRECOGNIZED DRUG - CODE] IV (15:16)
[2020-02-15] MEDS ORDERED: XGEVINJ SC (15:16)
[2020-02-15] MEDS ORDERED: GLIP5TAB8 PO (15:16)
--- NOTE | 2020-02-15 15:20 | HPEPDOC ---
General Date of Admission 02/15/20 Date of Service: Feb 15, 2020 Chief Complaint The patient is a 69-year-old male admitted with a reason for visit of SOB. Source: Patient Exam Limitations: No limitations Timing/Duration: Day(s) Associated Symptoms: Shortness of breath History of Present Illness Patient is 69 years old male with past medical history of type 2 diabetes, mixed hyperlipidemia, history of colon cancer, history of multiple myeloma currently on the chemotherapy presented hospital with shortness of breath. Patient stated that for past few days he has been having increased shortness of breath with lightheadedness. Of note patient currently receiving chemotherapy for multiple myeloma(carfilzomib/lenalidomide/dexamethasone). In emergency room patient was found to have no leukocytosis, hemoglobin 7.4, troponin negative. Patient denied fever, chills, chest pain, palpitations, nausea, vomiting, diarrhea or dysuria. Patient denied blood in the stool or black stool. Patient stated that he had multiple colonoscopy after colon cancer resection and it was negative Home Medications Scheduled Apixaban (Eliquis) 2.5 Mg Tablet, 2.5 MG PO BID Atorvastatin Calcium (Atorvastatin Calcium) 40 Mg Tab, 40 MG PO DAILY, (Reported) Carfilzomib Injection (Kyprolis) Unknown Strength Vial, Unknown Dose IV 2XW, (Reported) , TUE - SAME CYCLE REVLIMID Carvedilol (Carvedilol) 25 Mg Tab, 12.5 MG PO BID, (Reported) Dapsone (Dapsone) 100 Mg Tablet, 1 TAB PO DAILY Denosumab Injection (Xgeva) Unknown Strength Vial, Unknown Dose SC QMONTH, (Reported) Dexamethasone (Decadron) 4 Mg Tablet, 20 MG PO QWEEK, (Reported) MONDAYS Esomeprazole Magnesium (Nexium) 40 Mg Cap, 40 MG PO DAILY, (Reported) Glipizide (Glipizide) 5 Mg Tablet, 5 MG PO DAILY, (Reported) Icosapent Ethyl (Vascepa) 1 Gm Cap, 2 GM PO BID, (Reported) Lenalidomide (Revlimid) 20 Mg Capsule, 1 CAP PO DAILY Take 1 capsule by mouth daily on days 1-21 of cylce and then off x 7 days. Lisinopril (Lisinopril) 10 Mg Tablet, 10 MG PO DAILY, (Reported) Metformin HCl (Metformin HCl ER) 750 Mg Tab, 1,500 MG PO DAILY, (Reported) Multivitamin with Minerals (Multiple Vitamin) 1 Each Tablet, 1 TAB PO DAILY, (Reported) Sucralfate (Carafate) 1 Gm Tablet, 1 GM PO ACHS, (Reported) Valacyclovir HCl (Valtrex) 500 Mg Tablet, 1 TAB PO DAILY Scheduled PRN Prochlorperazine Maleate (Prochlorperazine Maleate) 10 Mg Tablet, 10 MG PO Q8H PRN for NAUSEA OR VOMITING Allergies Coded Allergies: sulfamethoxazole (Verified Allergy, Severe, SHORTNESS OF BREATH, 06/15/19) Past Medical History Medical History Patient has history of colon cancer diagnosed 2013 status post hemicolectomy. T3 N0 M0 followed by adjuvant FOLFOX completed August 2014. NGD since. TYPE 2 DIABETES MELLITUS WITHOUT COMPLICATIONS MIXED HYPERLIPIDEMIA NONALCOHOLIC STEATOHEPATITIS (TRAVIS) GASTRO-ESOPHAGEAL REFLUX DISEASE WITHOUT ESOPHAGITIS SLEEP APNEA, UNSPECIFIED ANXIETY HEREDITARY AND IDIOPATHIC NEUROPATHY, UNSPECIFIED ESSENTIAL (PRIMARY) HYPERTENSION OSTEOARTHRITIS OF BOTH KNEES PULMONARY NODULE ELEVATED PSA Multiple myeloma Surgical History Hemicolectomy due to colon cancer. Recently catheter placement for stem cell collection Family History Family history of colon cancer in a brother, esophageal cancer in father, plasma cell leukemia in brother recently . Social History * Smoker: Denies Alcohol: Denies Drugs: denies A-FIB/CHADSVASC A-FIB History Current/History of A-Fib/PAF?: No Current PO Anticoag Therapy: No Review of Systems Constitutional: Reports: Weakness; Denies: Chills, Fever Eyes: Denies: Pain ENT: Denies: Head Aches Skin: Denies: Rash, Lesions Pulmonary: Reports: Dyspnea; Denies: Cough Cardiovascular: Denies: Chest Pain Gastrointestinal: Denies: Nausea, Vomiting Genitourinary: Denies: Dysuria Hematologic: Denies: Bruising, Bleeding Excessively Endocrine: Denies: Polydipsia Musculoskeletal: Denies: Neck Pain Neurological: Denies: Weakness Psych: Reports: Mood Normal Physical Examination General Exam: Positive: Alert, Cooperative Eye Exam: Positive: PERRLA ENT Exam: Positive: Atraumatic Neck Exam: Positive: Supple; Negative: JVD Chest Exam: Positive: Clear to auscultation Heart Exam: Positive: Rate Normal Telemetry: Positive: No significant arrhythmia Abdomen Exam: Positive: Normal bowel sounds Extremity Exam: Negative: Clubbing Skin Exam: Positive: Nl turgor and temperature Neuro Exam: Positive: Strength at 5/5 X4 ext Psych Exam: Positive: Mental status NL Vital Signs Vital Signs Date Time Temp Pulse Resp B/P (MAP) Pulse Ox O2 Delivery O2 Flow Rate FiO2 02/15/20 14:27 73 99 02/15/20 14:15 145/77 (99) 02/15/20 12:15 18 Room Air 02/15/20 11:52 97.4 Laboratory Data Labs 24H Laboratory Tests 2 02/15/20 12:00: Prothrombin Time 15.3H, Prothromb Time International Ratio 1.18, Activated Partial Thromboplast Time 24.5L 02/15/20 12:01: Neutrophils (%) (Auto) , Nucleated Red Blood Cells % (auto) 62.4H, Neutrophils 57, Band Neutrophils 8, Lymphocytes (Manual) 22, Monocytes (Manual) 7H, Eosinophils (Manual) 2, Basophils (Manual) 2H, Metamyelocytes 2H, Polychromasia 2+, Anisocytosis 2+, Platelet Estimate NORMAL, Magnesium Level 1.8, Total Bilirubin 2.0H, Direct Bilirubin 0.4H, Aspartate Amino Transf (AST/SGOT) 27, Alanine Aminotransferase (ALT/SGPT) 31, Alkaline Phosphatase 61, OD-Nex-N-Type Natriuretic Peptide 150H, Total Protein 5.7L, Albumin 3.8, Albumin/Globulin Ratio 2.0, Lipase 99, Thyroid Stimulating Hormone (TSH) 0.795, Free Thyroxine 0. 96 02/15/20 12:20: POC Troponin I (Misc) 0.00 02/15/20 13:39: POC Glucose (Misc Panel) 124H, POC Sodium (Misc Panel) 137, POC Potassium (Misc Panel) 3.9, POC Chloride (Misc Panel) 104, POC Total CO2 (Misc Panel) 19.0L, POC Blood Urea Nitrogen (Misc Panel 18, POC Ionized Calcium (Misc Panel) 4.9, POC Creatinine (Misc Panel) 0.8, POC Hematocrit (Misc Panel) 20.0L CBC/BMP Laboratory Tests 02/15/20 12:01 Assessment/Plan Patient is 69 years old male with past medical history of type 2 diabetes, mixed hyperlipidemia, history of colon cancer, history of multiple myeloma currently on the chemotherapy presented hospital with shortness of breath. Patient stated that for past few days he has been having increased shortness of breath with lightheadedness. Of note patient currently receiving chemotherapy for multiple myeloma(carfilzomib/lenalidomide/dexamethasone). In emergency room patient was found to have no leukocytosis, hemoglobin 7.4, troponin negative. Patient denied fever, chills, chest pain, palpitations, nausea, vomiting, diarrhea or dysuria Problems (1) Dyspnea Status: Acute Problem Text: Most likely secondary to anemia secondary to chemotherapy We will give blood transfusion 2 units H&H every 6 hours (2) Anemia Status: Acute Problem Text: See above Patient has megaloblastic anemia We will check B12 and folate We'll check stool for occult blood (3) IgG multiple myeloma Onset Date: ~ 03/2019 Status: Acute Problem Text: Follow-up with oncologist in the outpatient settings We will continue Eliquis to prevent blood clots due to Revlimid (4) Diabetes mellitus Status: Chronic Problem Text: Continue home oral medications Diabetes diet (5) Coronary artery disease Status: Chronic Problem Text: Continue beta blockers and statin (6) GERD (gastroesophageal reflux disease) Status: Chronic Problem Text: Continue PPI Plan / VTE VTE Prophylaxis Ordered?: Yes LUKE OLVERA DO Feb 15, 2020 15:20
[2020-02-15] MEDS ORDERED: PROCHLORPERAZINE 5 MG TAB (S0183) PO PRN (15:30)
[2020-02-15 15:51] LABS: FOLATE 18.4 NG/ML (>5.4)
[2020-02-15] MEDS: SUCRALFATE 1 GM TAB PO SCH ×2 (18:44→21:28)
[2020-02-15] MEDS: CARVedilol 12.5 MG TAB PO SCH (20:02)
[2020-02-15] MEDS: APIXABAN 2.5 MG TAB (ELIQUIS) PO SCH (20:02)
[2020-02-16 05:31] LABS: HEMATOCRIT 24.9 % (42.0-52.0); HEMOGLOBIN 8.3 g/dl (13.5-17.5); MEAN CORPUSCULAR HEMOGLOBIN 34.2 pg (27.0-33.0); MEAN CORPUSCULAR HGB CONC 33.3 g/dl (32.0-36.5); MEAN CORPUSCULAR VOLUME 102.5 fl (80.0-96.0); PLATELET COUNT, AUTOMATED 102 10^3/uL (150-450); RED BLOOD COUNT 2.43 10^6/uL (4.30-6.10); WHITE BLOOD COUNT 2.3 10^3/uL (4.0-10.0)
[2020-02-16 05:48] LABS: BLOOD UREA NITROGEN 15 MG/DL (7-18); CARBON DIOXIDE LEVEL 22 MEQ/L (21-32); CHLORIDE LEVEL 109 MEQ/L (98-107); CREATININE FOR GFR 0.91 MG/DL (0.70-1.30); GLOMERULAR FILTRATION RATE > 60.0 (>49); GLUCOSE, FASTING 155 MG/DL (70-100); MAGNESIUM LEVEL 1.6 MG/DL (1.8-2.4); SODIUM LEVEL 139 MEQ/L (136-145)
[2020-02-16 06:00] VITALS: BP 142/78
[2020-02-16] MEDS ORDERED: glipiZIDE (GLUCOTROL) 5 MG TAB PO SCH (07:30)
[2020-02-16] MEDS: SUCRALFATE 1 GM TAB PO SCH (07:30)
--- NOTE | 2020-02-16 07:38 | ECGEPIP ---
[facility] - ED Test Date: 2020-02-15 Pat Name: MITZI CHRISTIANSON Department: Room: - Gender: Male .[employer] Programmer: : [id number] Requested By: Bassem Cox Order Number: [id number] Reading MD: Hardik Steve Measurements Intervals [place] Rate: 72 P: [place]: 0 QRS: 30 QRSD: 102 T: 41 QT: 422 QTc: 463 Interpretive Statements ATRIAL FIBRILLATION INCOMPLETE RIGHT BUNDLE BRANCH BLOCK RHYTHM CHANGE COMPARED TO 06/15/19 Electronically Signed on 02-16-2020 7:37:50 EDT by Hardik Steve
[2020-02-16] MEDS: CARVedilol 12.5 MG TAB PO SCH (08:05)
[2020-02-16] MEDS: APIXABAN 2.5 MG TAB (ELIQUIS) PO SCH (08:05)
[2020-02-16] MEDS ORDERED: metFORMIN XR 750 MG TAB PO SCH (09:00)
[2020-02-16] MEDS ORDERED: valACYclovir HCL 500 MG TAB PO SCH (09:00)
[2020-02-16] MEDS ORDERED: PANTOPRAZOLE 40MG TAB (PROTONIX) PO SCH (09:00)
[2020-02-16] MEDS ORDERED: lisinopriL 10 MG TAB PO SCH (09:00)
[2020-02-16] MEDS ORDERED: ATORVASTATIN 20 MG TAB PO SCH (09:00)
--- NOTE | 2020-02-16 11:18 | DS.PDOC ---
Discharge Summary General Date of Admission Feb 15, 2020 at 11:28 Date of Discharge 02/16/20 Discharge Summary PROCEDURES PERFORMED DURING STAY: [None]. ADMITTING DIAGNOSES: Dyspnea Anemia IgG multiple myeloma Diabetes mellitus Coronary artery disease GERD (gastroesophageal reflux disease) DISCHARGE DIAGNOSES: Dyspnea Anemia IgG multiple myeloma Diabetes mellitus Coronary artery disease GERD (gastroesophageal reflux disease) COMPLICATIONS/CHIEF COMPLAINT: Anemia Dyspnea. HISTORY OF PRESENT ILLNESS: Patient is 69 years old male with past medical history of type 2 diabetes, mixed hyperlipidemia, history of colon cancer, history of multiple myeloma currently on the chemotherapy presented hospital with shortness of breath. Patient stated that for past few days he has been having increased shortness of breath with lightheadedness. Of note patient currently receiving chemotherapy for multiple myeloma(carfilzomib/lenalidomide/dexamethasone). In emergency room patient was found to have no leukocytosis, hemoglobin 7.4, troponin negative. Patient denied fever, chills, chest pain, palpitations, nausea, vomiting, diarrhea or dysuria HOSPITAL COURSE: During hospital stay following addressed (1) Dyspnea Most likely secondary to anemia secondary to chemotherapy blood transfusion 2 units (2) Anemia Status: Acute Macrocytic anemia Most likely secondary to chemotherapy Await stool for occult blood (3) IgG multiple myeloma Follow-up with oncologist in the outpatient settings Eliquis to prevent blood clots due to Revlimid (4) Diabetes mellitus Continue home oral medications Diabetes diet (5) Coronary artery disease Status: Chronic Problem Text: Continue beta blockers and statin (6) GERD (gastroesophageal reflux disease) Status: Chronic Problem Text: Continue PPI DISCHARGE MEDICATIONS: Please see below. ALLERGIES: Please see below. PHYSICAL EXAMINATION ON DISCHARGE: VITAL SIGNS: Please see below. Objective: GENERAL APPEARANCE: NAD HEENT: no scleral icterus, no JVD, EOMI CARDIOVASCULAR: S1S2 LUNGS: CTA ABDOMEN: soft & not tender w palpitation MUSCULOSKELETAL: no cyanosis, no swelling INTEGUMENT: no generalized palor NEUROLOGICAL: cranial nerve function from 2-12 intact intact, follows commands, speech not dysarthric LABORATORY DATA: Please see below. PROGNOSIS: Fair ACTIVITY: [As tolerated]. DIET: Cardiac DISCHARGE PLAN: Follow-up with oncologist and PCP. Patient will need to repeat stool for blood in the outpatient settings DISCHARGE CONDITION: [Stable]. TIME SPENT ON DISCHARGE: Greater than 20 minutes. Vital Signs/I&Os Vital Signs Date Time Temp Pulse Resp B/P (MAP) Pulse Ox O2 Delivery O2 Flow Rate FiO2 02/16/20 06:00 97.7 55 18 142/78 (99) 96 Room Air I&O- Last 24 Hours up to 6 AM 02/16/20 06:00 Intake Total 1520 ml Output Total 0 ml Balance 1520 ml Laboratory Data Labs 24H Laboratory Tests 2 02/15/20 12:00: Prothrombin Time 15.3H, Prothromb Time International Ratio 1.18, Activated Partial Thromboplast Time 24.5L 02/15/20 12:01: Neutrophils (%) (Auto) , Nucleated Red Blood Cells % (auto) 62.4H, Neutrophils 57, Band Neutrophils 8, Lymphocytes (Manual) 22, Monocytes (Manual) 7H, Eosinophils (Manual) 2, Basophils (Manual) 2H, Metamyelocytes 2H, Polychromasia 2+, Anisocytosis 2+, Platelet Estimate NORMAL, Magnesium Level 1.8, Total Bilir ubin 2.0H, Direct Bilirubin 0.4H, Aspartate Amino Transf (AST/SGOT) 27, Alanine Aminotransferase (ALT/SGPT) 31, Alkaline Phosphatase 61, PY-Ghu-R-Type Natriuretic Peptide 150H, Total Protein 5.7L, Albumin 3.8, Albumin/Globulin Ratio 2.0, Lipase 99, Vitamin B12 Level 840, Folate 18.4, Thyroid Stimulating Hormone (TSH) 0.795, Free Thyroxine 0.96 02/15/20 12:20: POC Troponin I (Misc) 0.00 02/15/20 13:39: POC Glucose (Misc Panel) 124H, POC Sodium (Misc Panel) 137, POC Potassium (Misc Panel) 3.9, POC Chloride (Misc Panel) 104, POC Total CO2 (Misc Panel) 19.0L, POC Blood Urea Nitrogen (Misc Panel 18, POC Ionized Calcium (Misc Panel) 4.9, POC Creatinine (Misc Panel) 0.8, POC Hematocrit (Misc Panel) 20.0L 02/16/20 05:14: Nucleated Red Blood Cells % (auto) 86.5H, Anion Gap 8, Glomerular Filtration Rate > 60.0, Calcium Level 8.0L, Magnesium Level 1.6L CBC/BMP Laboratory Tests 02/15/20 12:01 02/16/20 05:14 Microbiology Microbiology 02/16/20 Stool Occult Blood (CLARA) - Final, Complete Discharge Medications Scheduled Apixaban (Eliquis) 2.5 Mg Tablet, 2.5 MG PO BID Atorvastatin Calcium (Atorvastatin Calcium) 40 Mg Tab, 40 MG PO DAILY, (Reported) Carfilzomib Injection (Kyprolis) Unknown Strength Vial, Unknown Dose IV 2XW, (Reported) TU, WED - SAME CYCLE REVLIMID Carvedilol (Carvedilol) 25 Mg Tab, 12.5 MG PO BID, (Reported) Dapsone (Dapsone) 100 Mg Tablet, 1 TAB PO DAILY Denosumab Injection (Xgeva) Unknown Strength Vial, Unknown Dose SC QMONTH, (Reported) Dexamethasone (Decadron) 4 Mg Tablet, 20 MG PO QWEEK, (Reported) MONDAYS Esomeprazole Magnesium (Nexium) 40 Mg Cap, 40 MG PO DAILY, (Reported) Glipizide (Glipizide) 5 Mg Tablet, 5 MG PO DAILY, (Reported) Icosapent Ethyl (Vascepa) 1 Gm Cap, 2 GM PO BID, (Reported) Lenalidomide (Revlimid) 20 Mg Capsule, 1 CAP PO DAILY Take 1 capsule by mouth daily on days 1-21 of cylce and then off x 7 days. Lisinopril (Lisinopril) 10 Mg Tablet, 10 MG PO DAILY, (Reported) Metformin HCl (Metformin HCl ER) 750 Mg Tab, 1,500 MG PO DAILY, (Reported) Multivitamin with Minerals (Multiple Vitamin) 1 Each Tablet, 1 TAB PO DAILY, (Reported) Sucralfate (Carafate) 1 Gm Tablet, 1 GM PO ACHS, (Reported) Valacyclovir HCl (Valtrex) 500 Mg Tablet, 1 TAB PO DAILY Scheduled PRN Prochlorperazine Maleate (Prochlorperazine Maleate) 10 Mg Tablet, 10 MG PO Q8H PRN for NAUSEA OR VOMITING Allergies Coded Allergies: sulfamethoxazole (Verified Allergy, Severe, SHORTNESS OF BREATH, 06/15/19) LUKE OLVERA DO Feb 16, 2020 11:18
== END 2020-02-16 11:01 | disposition home or self-care (01) ==
LOC: M ED 11:27 → M ED INP 11:28 → ENRESERV 15:42 → M MSPAV 16:32
PROVIDERS: ADMIT Internal Medicine; ATTEND Internal Medicine
DX: R06.09 Other forms of dyspnea (principal); D64.81 Anemia due to antineoplastic chemotherapy; Z79.899 Other long term (current) drug therapy; C90.00 Multiple myeloma not having achieved remission; E11.9 Type 2 diabetes mellitus without complications; I10 Essential (primary) hypertension; I25.10 Atherosclerotic heart disease of native coronary artery without angina pectoris; K21.9 Gastro-esophageal reflux disease without esophagitis; E78.2 Mixed hyperlipidemia; Z85.038 Personal history of other malignant neoplasm of large intestine; Z79.84 Long term (current) use of oral hypoglycemic drugs; Z88.2 Allergy status to sulfonamides; K75.81 Nonalcoholic steatohepatitis (NASH); G47.33 Obstructive sleep apnea (adult) (pediatric); F41.9 Anxiety disorder, unspecified; G60.9 Hereditary and idiopathic neuropathy, unspecified; M17.9 Osteoarthritis of knee, unspecified
CPT/HCPCS: 36415; 36430; 71045; 71275; 80047; 80048; 80076; 82270; 82607; 82746; 83690; 83735; 83880; 84439; 84443; 84484; 85025; 85027; 85610; 85730; 86850; 86900; 86901; 86920; 93005; 93041; 94760; 99285; G0378; G0463; P9016; Q9967

== ENCOUNTER → 2020-03-12 | Outpatient (REF) | payer MEDICARE, OTHER ==
[~2020-03-12] MED LIST changes: +GLIP5TAB8 PO; +XGEVINJ SC; +[UNRECOGNIZED DRUG - CODE] IV
[2020-03-12 11:06] LABS: ALBUMIN 3.8 GM/DL (3.2-5.2); ALT/SGPT 28 U/L (12-78); BILIRUBIN,TOTAL 0.6 MG/DL (0.2-1.0); BLOOD UREA NITROGEN 30 MG/DL (7-18); CALCIUM LEVEL 8.9 MG/DL (8.8-10.2); CARBON DIOXIDE LEVEL 23 MEQ/L (21-32); CHLORIDE LEVEL 108 MEQ/L (98-107); CHOLESTEROL LEVEL 168 MG/DL (<200); CHOLESTEROL RISK RATIO 3.054 (<5); CREATININE FOR GFR 1.09 MG/DL (0.70-1.30); GLOMERULAR FILTRATION RATE > 60.0 (>49); GLUCOSE, FASTING 169 MG/DL (70-100); HDL CHOLESTEROL 55 MG/DL (>40); LDL CHOLESTEROL 81 MG/DL (<100); NON-HDL-C 113 MG/DL; SODIUM LEVEL 140 MEQ/L (136-145); TOTAL PROTEIN 5.7 GM/DL (6.4-8.2); TRIGLYCERIDES LEVEL 161 MG/DL (<150)
== END ==
LOC: M PLALAB 07:57
PROVIDERS: ATTEND Internal Medicine
DX: E11.9 Type 2 diabetes mellitus without complications (principal); E78.2 Mixed hyperlipidemia

== ENCOUNTER → 2020-07-01 | Outpatient (CLI) | payer MEDICARE, OTHER ==
[~2020-07-01] MED LIST changes: +CALCTAB38 PO; +LISI10TA22 PO; -LISI10TA4 PO; +REVL10CA2 PO
--- NOTE | 2020-07-01 13:53 | REP ---
INDICATION: MULTIPLE MYENOMIA. COMPARISON: None. TECHNIQUE: AP, lateral, swimmer's views of the thoracic spine. FINDINGS: Alignment and kyphosis maintained. Moderate multilevel bridging osteophytes are appreciated. There is no evidence for acute fracture/compression injury or subluxation. No obvious lytic skeletal lesions are appreciated. IMPRESSION: Moderate osteophytosis. No fracture/compression injury or lytic lesions identified. <Electronically signed by Wilton June > 07/01/20 0530
== END ==
LOC: M RAD 12:13
PROVIDERS: ATTEND Specialist
DX: C90.00 Multiple myeloma not having achieved remission (principal); M25.78 Osteophyte, vertebrae

== ENCOUNTER → 2020-11-13 | Outpatient (CLI) | payer MEDICARE, OTHER ==
[~2020-11-13] MED LIST changes: +ASPI81TA26 PO; +ERGO500029 PO; -MAGN400T3 PO; +MAGN400T33 PO; +PHOS1TAB3 PO; +REVL5CAP2 PO; -VITA50005 PO
[2020-11-13 12:06] LABS: CHOLESTEROL RISK RATIO 3.227 (<5); PROSTATIC SPECIFIC AG MONITOR 4.78 NG/ML (< 4.00)
[2020-11-13 12:12] LABS: CREATININE, URINE 96.1 MG/DL; MALB URINE SIEMENS 10.2 MG/L; MAU/CREAT RATIO 10.6 MCG/MG (0.0-30.0)
== END ==
LOC: M PLALAB 07:34
PROVIDERS: ATTEND Internal Medicine
DX: E11.9 Type 2 diabetes mellitus without complications (principal); E78.2 Mixed hyperlipidemia; R97.20 Elevated prostate specific antigen [PSA]

== ENCOUNTER → 2020-12-23 | Outpatient (CLI) | payer MEDICARE, OTHER ==
[~2020-12-23] MED LIST changes: +MAGN400T3 PO; -MAGN400T33 PO
--- NOTE | 2020-12-23 12:54 | REP ---
INDICATION: PAIN. COMPARISON: None. TECHNIQUE: AP and lateral views of the lumbar spine. FINDINGS: Lumbar vertebral body heights are preserved. There is a minimal degenerative L4-5 spondylolisthesis, 2 mm. Degenerative disc narrowing is seen at 4 5 and there is moderate bilateral facet joint osteoarthropathy at L4-5. Mild facet hypertrophy and sclerosis are noted at L3-4 and L5-S1 as well. The pedicles and posterior elements are intact. Disc space narrowing is also noted at L3-4 and especially at L2-3. Degenerative disc disease is visible in the visualized lower thoracic spine levels as well. Psoas margins are symmetric. Sacrum is intact. There is a osteoarthritic spurring and sclerosis at the SI joints bilaterally. IMPRESSION: Degenerative spondylosis changes as noted above. <Electronically signed by Felipe Gee > 12/23/20 [id number]
== END ==
LOC: M RAD 11:32
PROVIDERS: ATTEND Specialist
DX: M43.06 Spondylolysis, lumbar region (principal)

== ENCOUNTER → 2021-03-30 | Outpatient (REF) ==
[~2021-03-30] MED LIST changes: -MAGN400T3 PO; +MAGN400T33 PO; -PROC10TA4 PO; +PROC10TA5 PO; +ZITHTAB2 PO
== END ==
LOC: M LABSMTC 09:48
PROVIDERS: ATTEND Pediatrics
DX: Z11.52 Encounter for screening for COVID-19 (principal)

== ENCOUNTER → 2021-06-04 | Outpatient (CLI) | payer MEDICARE, OTHER ==
[2021-06-04 10:56] LABS: HEMOGLOBIN A1c 6.1 %
[2021-06-04 11:07] LABS: ALT/SGPT 74 U/L (12-78); BILIRUBIN,TOTAL 0.6 MG/DL (0.2-1.0); BLOOD UREA NITROGEN 21 MG/DL (7-18); CALCIUM LEVEL 8.9 MG/DL (8.8-10.2); CARBON DIOXIDE LEVEL 23 MEQ/L (21-32); CHLORIDE LEVEL 109 MEQ/L (98-107); CHOLESTEROL LEVEL 167 MG/DL (<200); CHOLESTEROL RISK RATIO 3.553 (<5); CREATININE FOR GFR 1.02 MG/DL (0.70-1.30); GLOMERULAR FILTRATION RATE > 60.0 (>42); GLUCOSE, FASTING 141 MG/DL (70-100); HDL CHOLESTEROL 47 MG/DL (>40); LDL CHOLESTEROL 59 MG/DL (<100); MAGNESIUM LEVEL 1.7 MG/DL (1.8-2.4); NON-HDL-C 120 MG/DL; POTASSIUM SERUM 4.6 MEQ/L (3.5-5.1); PROSTATIC SPECIFIC AG MONITOR 4.44 NG/ML (< 4.00); SODIUM LEVEL 140 MEQ/L (136-145); TOTAL PROTEIN 6.7 GM/DL (6.4-8.2); TRIGLYCERIDES LEVEL 303 MG/DL (<150)
[2021-06-04 11:32] LABS: CREATININE, URINE 92.7 MG/DL; MALB URINE SIEMENS 6.1 MG/L; MAU/CREAT RATIO 6.5 MCG/MG (0.0-30.0)
== END ==
LOC: M PLALAB 08:18
PROVIDERS: ATTEND Internal Medicine
DX: E11.9 Type 2 diabetes mellitus without complications (principal); R97.20 Elevated prostate specific antigen [PSA]

== ENCOUNTER → 2021-07-31 | Outpatient (REF) | payer MEDICARE, OTHER ==
[~2021-07-31] MED LIST changes: -D31000TA2 PO; +VITA100093 PO
== END ==
LOC: M SFHCDERM 14:09
PROVIDERS: ATTEND Nurse Practitioner Family
DX: L57.0 Actinic keratosis (principal); D23.39 Other benign neoplasm of skin of other parts of face

== ENCOUNTER → 2021-10-04 | Outpatient (CLI) | payer MEDICARE, OTHER | LOC: M LABSMTC 12:04 | PROVIDERS: ATTEND Anesthesiology | DX: Z01.812 Encounter for preprocedural laboratory examination (principal) ==

== ENCOUNTER 2021-10-07 08:59 | Day surgery (SDC) | payer MEDICARE, OTHER ==
[~2021-10-07] VITALS: Ht 185.4 cm; Wt 122.7 kg
[~2021-10-07 08:59] MED LIST changes: +LIDOCAINE 2% 100MG/5ML SDV (FOR ANES.) As Ordered ONE; +NS 1,000 ML IV ONE; +fentaNYL 100 MCG/2 ML INJECTION As Ordered ONE; +propofoL 500 MG/50 ML VIAL As Ordered ONE
[2021-10-07 11:00] VITALS: BP 142/99
== END 2021-10-07 11:17 | disposition home or self-care (01) ==
LOC: M OPP 08:59
PROVIDERS: ATTEND Internal Medicine Gastroenterology
DX: Z12.11 Encounter for screening for malignant neoplasm of colon (principal); Z85.038 Personal history of other malignant neoplasm of large intestine; Z80.0 Family history of malignant neoplasm of digestive organs; K51.40 Inflammatory polyps of colon without complications; K57.30 Diverticulosis of large intestine without perforation or abscess without bleeding; K64.0 First degree hemorrhoids; K22.89 Other specified disease of esophagus; K44.9 Diaphragmatic hernia without obstruction or gangrene; K31.89 Other diseases of stomach and duodenum; R12 Heartburn; Z79.02 Long term (current) use of antithrombotics/antiplatelets; Z79.84 Long term (current) use of oral hypoglycemic drugs; Z79.899 Other long term (current) drug therapy; Z88.1 Allergy status to other antibiotic agents; Z87.891 Personal history of nicotine dependence
CPT/HCPCS: 43239; 45385; 88305; J3010

== ENCOUNTER → 2021-12-08 | Outpatient (REF) | payer MEDICARE, OTHER ==
[~2021-12-08] MED LIST changes: -LIDOCAINE 2% 100MG/5ML SDV (FOR ANES.) As Ordered ONE; -NS 1,000 ML IV ONE; -fentaNYL 100 MCG/2 ML INJECTION As Ordered ONE; -propofoL 500 MG/50 ML VIAL As Ordered ONE
[2021-12-08 10:10] LABS: CHOLESTEROL LEVEL 160 MG/DL (<200); CHOLESTEROL RISK RATIO 4.102 (<5); HDL CHOLESTEROL 39 MG/DL (>40); NON-HDL-C 121 MG/DL; TRIGLYCERIDES LEVEL 532 MG/DL (<150)
[2021-12-08 10:14] LABS: HEMOGLOBIN A1c 6.1 %
== END ==
LOC: M LAB REF 08:57
PROVIDERS: ATTEND Internal Medicine
DX: E11.9 Type 2 diabetes mellitus without complications (principal); E78.2 Mixed hyperlipidemia

== ENCOUNTER 2022-01-29 10:06 | Outpatient (CLI) | payer MEDICARE, OTHER ==
[~2022-01-29] VITALS: Ht 188 cm; Wt 125.0 kg
[~2022-01-29 10:06] MED LIST changes: +CEPH500C PO; +IMMUNE GLOBULIN 10% 10 GM in IV 1 EA IV ONE; +IMMUNE GLOBULIN 10% 40 GM in IV 1 EA IV ONE
[2022-01-29 10:15] VITALS: BP 175/88
[2022-01-29 11:15] VITALS: BP 120/78
[2022-01-29 11:45] VITALS: BP 129/70
[2022-01-29 12:15] VITALS: BP 133/82
[2022-01-29 14:00] VITALS: BP 132/80
== END 2022-01-29 14:00 | disposition home or self-care (01) ==
LOC: M INFU 10:06
PROVIDERS: ATTEND Specialist
DX: C90.00 Multiple myeloma not having achieved remission (principal); Z88.2 Allergy status to sulfonamides
CPT/HCPCS: 96365; 96366; J1459

== ENCOUNTER 2022-02-19 09:55 | Outpatient (CLI) | payer MEDICARE, OTHER ==
[~2022-02-19] VITALS: Ht 188 cm; Wt 120.9 kg
[2022-02-19 09:55] VITALS: BP 154/83
[~2022-02-19 09:55] MED LIST changes: -IMMUNE GLOBULIN 10% 10 GM in IV 1 EA IV ONE; -IMMUNE GLOBULIN 10% 40 GM in IV 1 EA IV ONE; +POMA2CAP PO
[2022-02-19] MEDS ORDERED: IMMUNE GLOBULIN 10% 40 GM in IV 1 EA IV ONE (10:00)
[2022-02-19] MEDS ORDERED: IMMUNE GLOBULIN 10% 10 GM in IV 1 EA IV ONE (10:00)
[2022-02-19 10:45] VITALS: BP 158/88
[2022-02-19 11:15] VITALS: BP 145/81
[2022-02-19 12:15] VITALS: BP 162/84
[2022-02-19] MEDS ORDERED: ACETAMINOPHEN TAB 650MG DOSE (2X325MG) PO ONE (12:35)
[2022-02-19 13:15] VITALS: BP 158/92
== END 2022-02-19 13:15 | disposition home or self-care (01) ==
LOC: M INFU 09:55
PROVIDERS: ATTEND Specialist
DX: C90.00 Multiple myeloma not having achieved remission (principal); Z88.2 Allergy status to sulfonamides
CPT/HCPCS: 96365; 96366; J1459

== ENCOUNTER → 2022-03-19 | Outpatient (REF) | payer MEDICARE, OTHER | LOC: M SFHCPLAZ 17:53 | PROVIDERS: ATTEND Physician Assistant | DX: R05.1 Acute cough (principal) ==

== ENCOUNTER 2022-03-31 10:50 | Outpatient (CLI) | payer MEDICARE, OTHER ==
[~2022-03-31] VITALS: Ht 188 cm; Wt 122.0 kg
[2022-03-31 10:50] VITALS: BP 144/79
[~2022-03-31 10:50] MED LIST changes: +IMMUNE GLOBULIN 10% 10 GM in IV 1 EA IV ONE; +IMMUNE GLOBULIN 10% 40 GM in IV 1 EA IV ONE
[2022-03-31] MEDS ORDERED: IMMUNE GLOBULIN 10% 40 GM in IV 1 EA IV ONE (11:00)
[2022-03-31] MEDS ORDERED: IMMUNE GLOBULIN 10% 10 GM in IV 1 EA IV ONE (11:00)
[2022-03-31 11:45] VITALS: BP 145/81
[2022-03-31 12:15] VITALS: BP 135/75
[2022-03-31 12:45] VITALS: BP 157/78
[2022-03-31 13:15] VITALS: BP 133/76
[2022-03-31 14:10] VITALS: BP 167/88
[2022-04-15] MEDS ORDERED: DAPS10TA PO (12:49)
[2022-04-16] MEDS ORDERED: POMA1CAP PO ×2 (13:03→18:07)
[2022-04-20] MEDS ORDERED: VALT500T PO (13:29)
[2022-04-21] MEDS ORDERED: POMA2CAP PO (19:37)
[2022-04-27] MEDS ORDERED: CARA1TAB6 PO ×2 (08:59→17:00)
[2022-04-27] MEDS ORDERED: VALT500T PO ×2 (09:00→17:01)
[2022-05-21] MEDS ORDERED: POMA1CAP PO (09:17)
[2022-06-17] MEDS ORDERED: POMA1CAP PO (10:40)
== END 2022-03-31 14:10 | disposition home or self-care (01) ==
LOC: M INFU 10:50
PROVIDERS: ATTEND Specialist
DX: C90.00 Multiple myeloma not having achieved remission (principal); D80.3 Selective deficiency of immunoglobulin G [IgG] subclasses; Z88.2 Allergy status to sulfonamides
CPT/HCPCS: 96365; 96366; 96372; J1459; Q5101

== ENCOUNTER 2022-04-28 10:35 | Outpatient (CLI) | payer MEDICARE, OTHER ==
[~2022-04-28] VITALS: Ht 188 cm; Wt 123.0 kg
[2022-04-28 10:35] VITALS: BP 133/61
[~2022-04-28 10:35] MED LIST changes: +POMA1CAP PO
[2022-04-28 11:30] VITALS: BP 136/81
[2022-04-28 12:00] VITALS: BP 132/76
[2022-04-28 12:30] VITALS: BP 142/79
[2022-04-28 13:00] VITALS: BP 139/78
[2022-04-28 13:50] VITALS: BP 149/84
== END 2022-04-28 13:50 | disposition home or self-care (01) ==
LOC: M INFU 10:35
PROVIDERS: ATTEND Specialist
DX: C90.00 Multiple myeloma not having achieved remission (principal); Z88.2 Allergy status to sulfonamides
CPT/HCPCS: 96365; 96366; J1459

== ENCOUNTER 2022-05-26 10:30 | Outpatient (CLI) | payer MEDICARE, OTHER ==
[~2022-05-26] VITALS: Ht 188 cm; Wt 123.0 kg
[2022-05-26 10:30] VITALS: BP 142/78
[2022-05-26 11:45] VITALS: BP 132/63
[2022-05-26 12:15] VITALS: BP 117/64
[2022-05-26 12:45] VITALS: BP 143/78
[2022-05-26 13:45] VITALS: BP 156/81
== END 2022-05-26 13:45 | disposition home or self-care (01) ==
LOC: M INFU 10:30
PROVIDERS: ATTEND Specialist
DX: C90.00 Multiple myeloma not having achieved remission (principal); Z88.2 Allergy status to sulfonamides
CPT/HCPCS: 96365; 96366; J1459

== ENCOUNTER → 2022-06-02 | Outpatient (CLI) | payer MEDICARE, OTHER ==
[~2022-06-02] MED LIST changes: -IMMUNE GLOBULIN 10% 10 GM in IV 1 EA IV ONE; -IMMUNE GLOBULIN 10% 40 GM in IV 1 EA IV ONE
[2022-06-02 10:30] LABS: BASO # 0.1 10^3/uL (0.0-0.2); BASO % 2.1 % (0.0-1.0); EOS # 0.1 10^3/uL (0.0-0.5); EOS % 1.5 % (0.0-3.0); HEMATOCRIT 33.5 % (42.0-52.0); LYMPH # 0.9 10^3/uL (1.5-5.0); LYMPH % 26.3 % (24.0-44.0); MEAN CORPUSCULAR HEMOGLOBIN 33.2 pg (27.0-33.0); MEAN CORPUSCULAR HGB CONC 32.8 g/dl (32.0-36.5); MEAN CORPUSCULAR VOLUME 101.2 fl (80.0-96.0); MONO # 0.2 10^3/uL (0.0-0.8); MONO % 6.9 % (2.0-8.0); NEUTROPHILS # 2.1 10^3/uL (1.5-8.5); NEUTROPHILS % 62.9 % (36.0-66.0); PLATELET COUNT, AUTOMATED 215 10^3/uL (150-450); RED BLOOD COUNT 3.31 10^6/uL (4.30-6.10); WHITE BLOOD COUNT 3.3 10^3/uL (4.0-10.0)
[2022-06-02 11:35] LABS: HEMOGLOBIN A1c 5.8 % (4.0-6.0)
[2022-06-02 14:15] LABS: IMMUNOGLOBULIN G 919 MG/DL (650-1600)
[2022-06-02 15:22] LABS: ALBUMIN 3.8 G/DL (3.2-5.2); ALKALINE PHOSPHATASE 79 U/L (46-116); ALT/SGPT 51 U/L (7.0-40); AST/SGOT 30 U/L (<34); BLOOD UREA NITROGEN 21 MG/DL (9-23); CALCIUM LEVEL 9.3 MG/DL (8.3-10.6); CARBON DIOXIDE LEVEL 21 MMOL/L (20-31); CHLORIDE LEVEL 106 MMOL/L (98-107); CHOLESTEROL LEVEL 169 MG/DL (<200); CHOLESTEROL RISK RATIO 3.82 (<5); CREATININE FOR GFR 0.86 MG/DL (0.70-1.30); GLOMERULAR FILTRATION RATE > 60.0 (>42); GLUCOSE, FASTING 188 MG/DL (74-106); HDL CHOLESTEROL 44.2 MG/DL (>40); IMMUNOGLOBULIN A < 33.0 MG/DL (40-350); IMMUNOGLOBULIN M < 21.0 MG/DL (50-300); NON-HDL-C 125 MG/DL; POTASSIUM SERUM 4.4 MMOL/L (3.5-5.1); PROSTATIC SPECIFIC AG MONITOR 4.04 NG/ML (< 4.00); SODIUM LEVEL 138 MMOL/L (136-145)
[2022-06-02 22:04] LABS: LDL CHOLESTEROL 64.8 MG/DL (<100); TOTAL PROTEIN 6.6 G/DL (5.7-8.2); TRIGLYCERIDES LEVEL 300 MG/DL (<150)
[2022-06-03 17:07] LABS: FREE KAPPA LIGHT CHAINS SERUM 7.3 mg/L (3.3-19.4); FREE LAMBDA LIGHT CHAINS SERUM 2.4 mg/L (5.7-26.3); KAPPA/LAMBDA RATIO SERUM 3.04 (0.26-1.65)
== END ==
LOC: M PLALAB 07:57
PROVIDERS: ATTEND Internal Medicine Hematology
DX: E11.9 Type 2 diabetes mellitus without complications (principal); R97.20 Elevated prostate specific antigen [PSA]

== ENCOUNTER 2022-06-23 10:40 | Outpatient (CLI) | payer MEDICARE, OTHER ==
[~2022-06-23] VITALS: Ht 188 cm; Wt 122.0 kg
[2022-06-23 10:40] VITALS: BP 146/80
[~2022-06-23 10:40] MED LIST changes: +IMMUNE GLOBULIN 10% 10 GM in IV 1 EA IV ONE; +IMMUNE GLOBULIN 10% 40 GM in IV 1 EA IV ONE
[2022-06-23 11:30] VITALS: BP 121/73
[2022-06-23 12:00] VITALS: BP 134/70
[2022-06-23 12:30] VITALS: BP 143/70
[2022-06-23 13:54] VITALS: BP 156/83
== END 2022-06-23 13:50 | disposition home or self-care (01) ==
LOC: M INFU 10:40
PROVIDERS: ATTEND Specialist
DX: C90.00 Multiple myeloma not having achieved remission (principal); Z88.2 Allergy status to sulfonamides
CPT/HCPCS: 96365; 96366; J1459

== ENCOUNTER 2022-08-02 08:36 | Outpatient (CLI) | payer MEDICARE, OTHER ==
[~2022-08-02] VITALS: Ht 182.9 cm; Wt 122.0 kg
[2022-08-02 08:45] VITALS: BP 131/76
[2022-08-02 09:40] VITALS: BP 133/70
[2022-08-02 10:10] VITALS: BP 132/75
[2022-08-02 10:40] VITALS: BP 175/95
[2022-08-02 12:10] VITALS: BP 154/76
== END 2022-08-02 12:15 | disposition home or self-care (01) ==
LOC: M INFU 08:36
PROVIDERS: ATTEND Specialist
DX: C90.00 Multiple myeloma not having achieved remission (principal); Z88.2 Allergy status to sulfonamides
CPT/HCPCS: 96365; 96366; J1459

== ENCOUNTER 2022-08-30 08:30 | Outpatient (CLI) | payer MEDICARE, OTHER ==
[~2022-08-30] VITALS: Ht 188 cm; Wt 123.8 kg
[2022-08-30 08:38] VITALS: BP 123/77
[2022-08-30 09:15] VITALS: BP 128/79
[2022-08-30 09:45] VITALS: BP 119/73
[2022-08-30 10:15] VITALS: BP 130/72
[2022-08-30 11:58] VITALS: BP 137/86
== END 2022-08-30 11:30 ==
LOC: M INFU 08:30
PROVIDERS: ATTEND Specialist
DX: C90.00 Multiple myeloma not having achieved remission (principal); Z88.2 Allergy status to sulfonamides
CPT/HCPCS: 96365; 96366; J1459

== ENCOUNTER 2022-09-27 09:15 | Outpatient (CLI) | payer MEDICARE, OTHER ==
[~2022-09-27] VITALS: Ht 186.7 cm; Wt 123.8 kg
[~2022-09-27 09:15] MED LIST changes: +CARV12.5 PO; -IMMUNE GLOBULIN 10% 10 GM in IV 1 EA IV ONE; -IMMUNE GLOBULIN 10% 40 GM in IV 1 EA IV ONE
[2022-09-27 09:20] VITALS: BP 141/79; O2SAT 95
[2022-09-27] MEDS ORDERED: IMMUNE GLOBULIN 10% 40 GM in IV 1 EA IV ONE (09:30)
[2022-09-27] MEDS ORDERED: IMMUNE GLOBULIN 10% 10 GM in IV 1 EA IV ONE (09:30)
[2022-09-27 10:00] VITALS: BP 132/76; O2SAT 95
[2022-09-27 10:30] VITALS: BP 134/76; O2SAT 94
[2022-09-27 11:00] VITALS: BP 135/73; O2SAT 94
[2022-09-27 12:20] VITALS: BP 122/80; O2SAT 95
== END 2022-09-27 12:20 | disposition home or self-care (01) ==
LOC: M INFU 09:15
PROVIDERS: ATTEND Specialist
DX: C90.00 Multiple myeloma not having achieved remission (principal); Z88.2 Allergy status to sulfonamides
CPT/HCPCS: 96365; 96366; J1459

== ENCOUNTER 2022-10-25 09:36 | Outpatient (CLI) | payer MEDICARE, OTHER ==
[~2022-10-25] VITALS: Ht 188 cm; Wt 123.8 kg
[~2022-10-25 09:36] MED LIST changes: +IMMUNE GLOBULIN 10% 10 GM in IV 1 EA IV ONE; +IMMUNE GLOBULIN 10% 40 GM in IV 1 EA IV ONE
[2022-10-25 09:55] VITALS: BP 144/76; O2SAT 96
[2022-10-25 10:30] VITALS: BP 124/71; O2SAT 97
[2022-10-25 11:00] VITALS: BP 139/80; O2SAT 96
[2022-10-25 13:21] VITALS: BP 142/83; O2SAT 97
== END 2022-10-25 13:30 ==
LOC: M INFU 09:36
PROVIDERS: ATTEND Specialist
DX: C90.00 Multiple myeloma not having achieved remission (principal); C88.2 Heavy chain disease; Z88.2 Allergy status to sulfonamides
CPT/HCPCS: 96365; 96366; J1459

== ENCOUNTER 2022-11-25 11:50 | Outpatient (CLI) | payer MEDICARE, OTHER ==
[~2022-11-25 11:50] MED LIST changes: -IMMUNE GLOBULIN 10% 10 GM in IV 1 EA IV ONE; -IMMUNE GLOBULIN 10% 40 GM in IV 1 EA IV ONE
[2022-11-25 11:59] VITALS: BP 122/77; O2SAT 95
[2022-11-25] MEDS ORDERED: IMMUNE GLOBULIN 10% 40 GM in IV 1 EA IV ONE (12:15)
[2022-11-25] MEDS ORDERED: IMMUNE GLOBULIN 10% 10 GM in IV 1 EA IV ONE (12:15)
[2022-11-25 13:00] VITALS: BP 124/73; O2SAT 97
[2022-11-25 13:30] VITALS: BP 154/77; O2SAT 97
[2022-11-25 15:30] VITALS: BP 136/74; O2SAT 95
== END 2022-11-25 15:30 | disposition home or self-care (01) ==
LOC: M INFU 11:50
PROVIDERS: ATTEND Specialist
DX: C90.00 Multiple myeloma not having achieved remission (principal); Z88.2 Allergy status to sulfonamides
CPT/HCPCS: 96365; 96366; J1459

== ENCOUNTER → 2022-12-06 | Outpatient (CLI) | payer MEDICARE, OTHER ==
[2022-12-06 14:21] LABS: TOTAL 25(OH) VITAMIN D 14.3 NG/ML (20.0-100.0)
[2022-12-06 14:22] LABS: FREE T4 1.07 NG/DL (0.89-1.76); THYROID STIMULATING HORMONE 1.888 uIU/ML (0.55-4.78)
== END ==
LOC: M PLALAB 08:38
PROVIDERS: ATTEND Internal Medicine Hematology
DX: E11.9 Type 2 diabetes mellitus without complications (principal); R97.20 Elevated prostate specific antigen [PSA]; Z79.899 Other long term (current) drug therapy

== ENCOUNTER 2022-12-29 10:00 | Outpatient (CLI) | payer MEDICARE, OTHER ==
[~2022-12-29] VITALS: Ht 188 cm; Wt 125.0 kg
[2022-12-29 09:58] VITALS: BP 132/77; O2SAT 95
[~2022-12-29 10:00] MED LIST changes: +NOXI1TAB PO
[2022-12-29] MEDS ORDERED: IMMUNE GLOBULIN 10% 10 GM in IV 1 EA IV ONE (10:10)
[2022-12-29] MEDS ORDERED: IMMUNE GLOBULIN 10% 40 GM in IV 1 EA IV ONE (10:10)
[2022-12-29 10:45] VITALS: BP 134/81; O2SAT 60
[2022-12-29 11:15] VITALS: BP 143/76; O2SAT 98
[2022-12-29] MEDS ORDERED: POMA1CAP PO (11:24)
[2022-12-29 12:15] VITALS: BP 140/88; O2SAT 96
[2022-12-29 13:00] VITALS: BP 169/84; O2SAT 97
== END 2022-12-29 13:00 | disposition home or self-care (01) ==
LOC: M INFU 10:00
PROVIDERS: ATTEND Specialist
DX: C90.00 Multiple myeloma not having achieved remission (principal); Z88.2 Allergy status to sulfonamides
CPT/HCPCS: 96365; 96366; J1459

== ENCOUNTER 2023-05-12 09:46 | Outpatient (CLI) | payer MEDICARE, OTHER ==
[~2023-05-12 09:46] MED LIST changes: +ALBUTEROL SULFATE 2.5MG/0.5ML INH NEB SOLN INH PRN; +ATOV5SUS PO; +EPINEPHrine INJ 1 MG/ML 1ML AMP IM PRN; +GLIP5TAB17 PO; -GLIP5TAB8 PO; +NIRM1TAB PO; +NS 1,000 ML IV SCH; +diphenhydrAMINE 50MG/ML VIAL IV PRN; +methylPREDNISolone 125MG 2ML VIAL IV PRN
[2023-05-12 10:00] VITALS: BP 146/84; O2SAT 96
[2023-05-12] MEDS ORDERED: IMMUNE GLOBULIN 10% 40 GM in IV 1 EA IV ONE (10:15)
[2023-05-12] MEDS ORDERED: IMMUNE GLOBULIN 10% 10 GM in IV 1 EA IV ONE (10:15)
[2023-05-12] MEDS ORDERED: ACETAMINOPHEN 650MG PO PRIOR TO INFUSION PO ONE (10:20)
[2023-05-12] MEDS ORDERED: diphenhydrAMINE 25MG PO PRIOR TO INFUSION PO ONE (10:20)
[2023-05-12 11:00] VITALS: BP 143/82; O2SAT 96
[2023-05-12 11:30] VITALS: BP 141/81; O2SAT 95
[2023-05-12 12:00] VITALS: BP 162/89; O2SAT 97
[2023-05-12 13:35] VITALS: BP 142/79; O2SAT 97
== END 2023-05-12 13:30 | disposition home or self-care (01) ==
LOC: M INFU 09:46
PROVIDERS: ATTEND Nurse Practitioner
DX: C90.00 Multiple myeloma not having achieved remission (principal); D80.1 Nonfamilial hypogammaglobulinemia; Z88.2 Allergy status to sulfonamides
CPT/HCPCS: 96365; 96366; J1459

== ENCOUNTER 2023-08-04 09:30 | Outpatient (CLI) | payer MEDICARE, OTHER ==
[~2023-08-04] VITALS: Ht 188 cm; Wt 121.0 kg
[2023-08-04 09:30] VITALS: BP 156/95; O2SAT 96
[~2023-08-04 09:30] MED LIST changes: -ALBUTEROL SULFATE 2.5MG/0.5ML INH NEB SOLN INH PRN; +DAPS100T22 PO; -DAPS10TA PO; -EPINEPHrine INJ 1 MG/ML 1ML AMP IM PRN; -NS 1,000 ML IV SCH; -diphenhydrAMINE 50MG/ML VIAL IV PRN; -methylPREDNISolone 125MG 2ML VIAL IV PRN
[2023-08-04] MEDS: diphenhydrAMINE 50MG/ML VIAL IV ONE (09:54)
[2023-08-04] MEDS: ACETAMINOPHEN TAB 650MG DOSE (2X325MG) PO ONE (09:54)
[2023-08-04] MEDS: IMMUNE GLOBULIN 10% 40 GM in IV 1 EA IV ONE (09:56)
[2023-08-04] MEDS: IMMUNE GLOBULIN 10% 10 GM in IV 1 EA IV ONE (10:00)
[2023-08-04 10:30] VITALS: BP 143/86; O2SAT 97
[2023-08-04 11:00] VITALS: BP 150/83; O2SAT 97
[2023-08-04 11:30] VITALS: BP 155/90; O2SAT 98
[2023-08-04 12:30] VITALS: BP 140/83; O2SAT 100
== END 2023-08-04 12:50 | disposition home or self-care (01) ==
LOC: M INFU 09:30
PROVIDERS: ATTEND Nurse Practitioner
DX: C90.00 Multiple myeloma not having achieved remission (principal); D80.1 Nonfamilial hypogammaglobulinemia; Z88.2 Allergy status to sulfonamides
CPT/HCPCS: 96365; 96366; J1459

== ENCOUNTER → 2023-08-12 | Outpatient (CLI) | payer MEDICARE, OTHER ==
[2023-08-12 12:38] LABS: BASO # 0.1 10^3/uL (0.0-0.2); BASO % 1.9 % (0.0-1.0); EOS # 0.1 10^3/uL (0.0-0.5); EOS % 2.6 % (0.0-3.0); HEMATOCRIT 39.1 % (42.0-52.0); HEMOGLOBIN 13.5 g/dl (13.5-17.5); LYMPH # 1.1 10^3/uL (1.5-5.0); LYMPH % 34.6 % (24.0-44.0); MEAN CORPUSCULAR HEMOGLOBIN 30.3 pg (27.0-33.0); MEAN CORPUSCULAR HGB CONC 34.5 g/dl (32.0-36.5); MEAN CORPUSCULAR VOLUME 87.9 fl (80.0-96.0); MONO # 0.5 10^3/uL (0.0-0.8); MONO % 15.7 % (2.0-8.0); NEUTROPHILS # 1.4 10^3/uL (1.5-8.5); NEUTROPHILS % 44.9 % (36.0-66.0); PLATELET COUNT, AUTOMATED 119 10^3/uL (150-450); RED BLOOD COUNT 4.45 10^6/uL (4.30-6.10); WHITE BLOOD COUNT 3.1 10^3/uL (4.0-10.0)
[2023-08-12 13:25] LABS: C REACTIVE PROTEIN QUANTITATIV < 0.40 MG/DL (<1.0)
[2023-08-12 13:27] LABS: ALBUMIN 3.8 G/DL (3.2-5.2); ALKALINE PHOSPHATASE 72 U/L (46-116); ALT/SGPT 50 U/L (7.0-40); AST/SGOT 24 U/L (<34); BILIRUBIN,TOTAL 0.7 MG/DL (0.3-1.2); BLOOD UREA NITROGEN 20 MG/DL (9-23); CALCIUM LEVEL 9.4 MG/DL (8.3-10.6); CARBON DIOXIDE LEVEL 23 MMOL/L (20-31); CHLORIDE LEVEL 105 MMOL/L (98-107); CHOLESTEROL LEVEL 151 MG/DL (<200); CHOLESTEROL RISK RATIO 4.02 (<5); CREATININE FOR GFR 0.95 MG/DL (0.70-1.30); CREATININE, URINE 108.8 MG/DL; FREE T4 1.03 NG/DL (0.89-1.76); GLOMERULAR FILTRATION RATE > 60.0 (>42); GLUCOSE, FASTING 188 MG/DL (74-106); HDL CHOLESTEROL 37.5 MG/DL (>40); LDL CHOLESTEROL 64.9 MG/DL (<100); MAU/CREAT RATIO 5.5 MCG/MG (0.0-30.0); NON-HDL-C 113.5 MG/DL; POTASSIUM SERUM 4.2 MMOL/L (3.5-5.1); PSA SCREENING 4.53 NG/ML (< 4.00); SODIUM LEVEL 138 MMOL/L (136-145); THYROID STIMULATING HORMONE 0.752 uIU/ML (0.55-4.78); TOTAL 25(OH) VITAMIN D 31.6 NG/ML (20.0-100.0); TOTAL PROTEIN 6.4 G/DL (5.7-8.2); TRIGLYCERIDES LEVEL 243 MG/DL (<150); VITAMIN B12 LEVEL 470 PG/ML (211-911)
== END ==
LOC: M PLALAB 08:55
PROVIDERS: ATTEND Internal Medicine Hematology
DX: E11.9 Type 2 diabetes mellitus without complications (principal); R97.20 Elevated prostate specific antigen [PSA]; Z12.5 Encounter for screening for malignant neoplasm of prostate; Z79.899 Other long term (current) drug therapy
CPT/HCPCS: 36415; 80053; 80061; 82043; 82306; 82607; 83036; 83525; 84439; 84443; 85025; 86140; G0103

== ENCOUNTER → 2023-08-17 | Outpatient (REF) | payer MEDICARE, OTHER | LOC: M SFHCDERM 17:38 | PROVIDERS: ATTEND Nurse Practitioner Family | DX: D23.39 Other benign neoplasm of skin of other parts of face (principal); L57.8 Other skin changes due to chronic exposure to nonionizing radiation ==

== ENCOUNTER 2023-09-01 10:22 | Outpatient (CLI) | payer MEDICARE, OTHER ==
[~2023-09-01] VITALS: Ht 188 cm; Wt 120.0 kg
[~2023-09-01 10:22] MED LIST changes: +DAPA10TA5
[2023-09-01] MEDS ORDERED: diphenhydrAMINE 50MG/ML VIAL IV ONE (10:30)
[2023-09-01] MEDS ORDERED: ACETAMINOPHEN TAB 650MG DOSE (2X325MG) PO ONE (10:30)
[2023-09-01 10:40] VITALS: BP 145/86; O2SAT 98
[2023-09-01] MEDS: IMMUNE GLOBULIN 10% 10 GM in IV 1 EA IV ONE (10:52)
[2023-09-01] MEDS: IMMUNE GLOBULIN 10% 40 GM in IV 1 EA IV ONE (10:53)
[2023-09-01 11:30] VITALS: BP 143/80; O2SAT 97
[2023-09-01 12:00] VITALS: BP 151/82; O2SAT 100
[2023-09-01 12:30] VITALS: BP 147/89; O2SAT 100
[2023-09-01 14:00] VITALS: BP 160/79; O2SAT 99
== END 2023-09-01 13:55 | disposition home or self-care (01) ==
LOC: M INFU 10:22
PROVIDERS: ATTEND Nurse Practitioner
DX: C90.00 Multiple myeloma not having achieved remission (principal); D80.1 Nonfamilial hypogammaglobulinemia; Z88.2 Allergy status to sulfonamides
CPT/HCPCS: 96365; 96366; J1459

== ENCOUNTER 2023-09-29 09:30 | Outpatient (CLI) | payer MEDICARE, OTHER ==
[~2023-09-29] VITALS: Ht 188 cm; Wt 117.0 kg
[2023-09-29 09:30] VITALS: BP 154/82; O2SAT 97
[~2023-09-29 09:30] MED LIST changes: +ACETAMINOPHEN 650MG PO PRIOR TO INFUSION PO ONE; +diphenhydrAMINE 25MG IV PRIOR TO INFUSION IV ONE
[2023-09-29] MEDS: IMMUNE GLOBULIN 10% 10 GM in IV 1 EA IV ONE (09:50)
[2023-09-29] MEDS: IMMUNE GLOBULIN 10% 40 GM in IV 1 EA IV ONE (09:51)
[2023-09-29 10:30] VITALS: BP 135/79; O2SAT 99
[2023-09-29 11:00] VITALS: BP 130/77; O2SAT 100
[2023-09-29 11:30] VITALS: BP 133/81; O2SAT 100
== END 2023-09-29 13:00 | disposition home or self-care (01) ==
LOC: M INFU 09:30
PROVIDERS: ATTEND Nurse Practitioner
DX: D80.1 Nonfamilial hypogammaglobulinemia (principal); Z88.2 Allergy status to sulfonamides
CPT/HCPCS: 96365; 96366; J1459

== ENCOUNTER 2023-10-27 10:00 | Outpatient (CLI) | payer MEDICARE, OTHER ==
[~2023-10-27] VITALS: Ht 185.4 cm; Wt 115.0 kg
[2023-10-27 10:00] VITALS: BP 162/97; O2SAT 99
[~2023-10-27 10:00] MED LIST changes: -ACETAMINOPHEN 650MG PO PRIOR TO INFUSION PO ONE; +ALBUTEROL SULFATE 2.5MG/0.5ML INH NEB SOLN INH PRN; +EPINEPHrine INJ 1 MG/ML 1ML AMP IM PRN; +NS 1,000 ML IV SCH; -diphenhydrAMINE 25MG IV PRIOR TO INFUSION IV ONE; +diphenhydrAMINE 50MG/ML VIAL IV ONE; +diphenhydrAMINE 50MG/ML VIAL IV PRN; +methylPREDNISolone 125MG 2ML VIAL IV PRN; +methylPREDNISolone 40MG 1ML VIAL IV ONE
[2023-10-27] MEDS: IMMUNE GLOBULIN 10% 20 GM in IV 1 EA IV ONE (10:46)
[2023-10-27] MEDS: IMMUNE GLOBULIN 10% 40 GM in IV 1 EA IV ONE (10:46)
[2023-10-27 11:15] VITALS: BP 114/59; O2SAT 98
[2023-10-27 11:45] VITALS: BP 111/64; O2SAT 97
[2023-10-27 12:15] VITALS: BP 119/71; O2SAT 98
[2023-10-27 13:15] VITALS: BP 146/78; O2SAT 97
[2023-10-27 14:00] VITALS: BP 162/83; O2SAT 98
== END 2023-10-27 14:05 ==
LOC: M INFU 10:00
PROVIDERS: ATTEND Nurse Practitioner
DX: D80.1 Nonfamilial hypogammaglobulinemia (principal); Z88.2 Allergy status to sulfonamides
CPT/HCPCS: 96365; 96366; J1459

== ENCOUNTER → 2023-11-14 | Outpatient (CLI) | payer MEDICARE, OTHER ==
[~2023-11-14] MED LIST changes: -ALBUTEROL SULFATE 2.5MG/0.5ML INH NEB SOLN INH PRN; -EPINEPHrine INJ 1 MG/ML 1ML AMP IM PRN; -NS 1,000 ML IV SCH; -diphenhydrAMINE 50MG/ML VIAL IV ONE; -diphenhydrAMINE 50MG/ML VIAL IV PRN; -methylPREDNISolone 125MG 2ML VIAL IV PRN; -methylPREDNISolone 40MG 1ML VIAL IV ONE
== END ==
LOC: M WHC 08:57
PROVIDERS: ATTEND Specialist
DX: M81.0 Age-related osteoporosis without current pathological fracture (principal)

== ENCOUNTER 2023-11-24 10:00 | Outpatient (CLI) | payer MEDICARE, OTHER ==
[~2023-11-24] VITALS: Ht 188 cm; Wt 113.0 kg
[2023-11-24 09:55] VITALS: BP 130/81; O2SAT 98
[~2023-11-24 10:00] MED LIST changes: +ALBUTEROL SULFATE 2.5MG/0.5ML INH NEB SOLN INH PRN; +DEXA4TA PO; +EPINEPHrine INJ 1 MG/ML 1ML AMP IM PRN; +diphenhydrAMINE 50MG/ML VIAL IV PRN; +methylPREDNISolone 125MG 2ML VIAL IV PRN
[2023-11-24] MEDS: IMMUNE GLOBULIN 10% 40 GM in IV 1 EA IV ONE (10:28)
[2023-11-24] MEDS: IMMUNE GLOBULIN 10% 20 GM in IV 1 EA IV ONE (10:32)
[2023-11-24] MEDS: diphenhydrAMINE 25MG IV PRIOR TO INFUSION IV ONE (10:33)
[2023-11-24] MEDS: methylPREDNISolone 40MG 1ML VIAL IV ONE (10:33)
[2023-11-24] MEDS: NS 1,000 ML IV SCH (10:33)
[2023-11-24 11:00] VITALS: BP 132/80; O2SAT 99
[2023-11-24 11:30] VITALS: BP 138/82; O2SAT 100
[2023-11-24 12:00] VITALS: BP 130/80; O2SAT 99
[2023-11-24 13:00] VITALS: BP 126/79; O2SAT 99
[2023-11-24 15:17] VITALS: BP 152/92; O2SAT 98
== END 2023-11-24 15:17 ==
LOC: M INFU 10:00
PROVIDERS: ATTEND Nurse Practitioner
DX: D80.1 Nonfamilial hypogammaglobulinemia (principal); Z88.2 Allergy status to sulfonamides
CPT/HCPCS: 96365; 96366; J1459

== ENCOUNTER → 2023-11-25 | Outpatient (CLI) | payer MEDICARE, OTHER ==
[~2023-11-25] MED LIST changes: -ALBUTEROL SULFATE 2.5MG/0.5ML INH NEB SOLN INH PRN; -EPINEPHrine INJ 1 MG/ML 1ML AMP IM PRN; -diphenhydrAMINE 50MG/ML VIAL IV PRN; -methylPREDNISolone 125MG 2ML VIAL IV PRN
[2023-11-25 12:16] LABS: BASO % 0.9 % (0.0-1.0); EOS # 0.1 10^3/uL (0.0-0.5); EOS % 1.6 % (0.0-3.0); HEMATOCRIT 39.4 % (42.0-52.0); HEMOGLOBIN 13.5 g/dl (13.5-17.5); LYMPH # 1.7 10^3/uL (1.5-5.0); LYMPH % 39.4 % (24.0-44.0); MEAN CORPUSCULAR HEMOGLOBIN 31.1 pg (27.0-33.0); MEAN CORPUSCULAR HGB CONC 34.3 g/dl (32.0-36.5); MEAN CORPUSCULAR VOLUME 90.8 fl (80.0-96.0); MONO # 0.5 10^3/uL (0.0-0.8); MONO % 11.7 % (2.0-8.0); NEUTROPHILS % 46.2 % (36.0-66.0); PLATELET COUNT, AUTOMATED 157 10^3/uL (150-450); RED BLOOD COUNT 4.34 10^6/uL (4.30-6.10); WHITE BLOOD COUNT 4.4 10^3/uL (4.0-10.0)
[2023-11-25 12:29] LABS: HEMOGLOBIN A1c 6.5 % (4.0-6.0)
[2023-11-25 12:47] LABS: CREATININE, URINE 112.2 MG/DL; MALB URINE SIEMENS < 3.0 MG/L; MAU/CREAT RATIO 2.6 MCG/MG (0.0-30.0)
[2023-11-25 12:49] LABS: C REACTIVE PROTEIN QUANTITATIV < 0.40 MG/DL (<1.0)
[2023-11-25 12:50] LABS: THYROID STIMULATING HORMONE 1.982 uIU/ML (0.55-4.78); TOTAL 25(OH) VITAMIN D 30.5 NG/ML (20.0-100.0)
[2023-11-25 12:51] LABS: ALBUMIN 3.8 G/DL (3.2-5.2); ALKALINE PHOSPHATASE 62 U/L (46-116); ALT/SGPT 37 U/L (7.0-40); AST/SGOT 22 U/L (<34); BILIRUBIN,TOTAL 0.8 MG/DL (0.3-1.2); BLOOD UREA NITROGEN 28 MG/DL (9-23); CALCIUM LEVEL 9.1 MG/DL (8.3-10.6); CARBON DIOXIDE LEVEL 22 MMOL/L (20-31); CHLORIDE LEVEL 108 MMOL/L (98-107); CHOLESTEROL LEVEL 156 MG/DL (<200); CREATININE FOR GFR 0.98 MG/DL (0.70-1.30); GLOMERULAR FILTRATION RATE > 60.0 (>42); GLUCOSE, FASTING 149 MG/DL (74-106); HDL CHOLESTEROL 36.2 MG/DL (>40); LDL CHOLESTEROL 50.6 MG/DL (<100); NON-HDL-C 119.8 MG/DL; POTASSIUM SERUM 4.3 MMOL/L (3.5-5.1); SODIUM LEVEL 138 MMOL/L (136-145); TOTAL PROTEIN 7.6 G/DL (5.7-8.2); TRIGLYCERIDES LEVEL 346 MG/DL (<150)
[2023-11-25 12:52] LABS: FREE T4 1.16 NG/DL (0.89-1.76); VITAMIN B12 LEVEL 518 PG/ML (211-911)
== END ==
LOC: M PLALAB 07:53
PROVIDERS: ATTEND Internal Medicine Hematology
DX: E11.9 Type 2 diabetes mellitus without complications (principal); Z79.899 Other long term (current) drug therapy

== ENCOUNTER → 2023-11-28 | Outpatient (CLI) | payer MEDICARE, OTHER | LOC: M PLALAB 09:52 | PROVIDERS: ATTEND Internal Medicine Hematology | DX: C18.9 Malignant neoplasm of colon, unspecified (principal) ==

== ENCOUNTER 2023-12-22 10:00 | Outpatient (CLI) | payer MEDICARE, OTHER ==
[~2023-12-22] VITALS: Ht 188 cm; Wt 114.0 kg
[2023-12-22 10:00] VITALS: BP 136/82; O2SAT 98
[~2023-12-22 10:00] MED LIST changes: +ACET32TAB PO; +ALBUTEROL SULFATE 2.5MG/0.5ML INH NEB SOLN INH PRN; +BENA25CA4 PO; +EPINEPHrine INJ 1 MG/ML 1ML AMP IM PRN; +FAMO20TA PO; +NS 1,000 ML IV SCH; +diphenhydrAMINE 25MG IV PRIOR TO INFUSION IV ONE; +diphenhydrAMINE 50MG/ML VIAL IV PRN; +methylPREDNISolone 125MG 2ML VIAL IV PRN; +methylPREDNISolone 40MG 1ML VIAL IV ONE
[2023-12-22] MEDS: IMMUNE GLOBULIN 10% 20 GM in IV 1 EA IV ONE (10:09)
[2023-12-22] MEDS: IMMUNE GLOBULIN 10% 40 GM in IV 1 EA IV ONE (10:10)
[2023-12-22 11:00] VITALS: BP 139/84; O2SAT 100
[2023-12-22 11:30] VITALS: BP 119/75; O2SAT 98
[2023-12-22 13:00] VITALS: BP 145/88; O2SAT 98
[2023-12-22 13:32] VITALS: BP 139/83; O2SAT 98
== END 2023-12-22 13:45 ==
LOC: M INFU 10:00
PROVIDERS: ATTEND Nurse Practitioner
DX: C90.00 Multiple myeloma not having achieved remission (principal); D80.1 Nonfamilial hypogammaglobulinemia; Z88.2 Allergy status to sulfonamides
CPT/HCPCS: 96365; 96366; J1459

== ENCOUNTER 2024-01-19 10:00 | Outpatient (CLI) | payer MEDICARE, OTHER ==
[~2024-01-19] VITALS: Ht 188 cm; Wt 112.0 kg
[2024-01-19 10:00] VITALS: BP 149/89; O2SAT 97
[~2024-01-19 10:00] MED LIST changes: +NIRM1TAB14 PO; +VENTAER INH
[2024-01-19] MEDS: IMMUNE GLOBULIN 10% 40 GM in IV 1 EA IV ONE (10:06)
[2024-01-19] MEDS: IMMUNE GLOBULIN 10% 20 GM in IV 1 EA IV ONE (10:08)
[2024-01-19 10:30] VITALS: BP 140/86; O2SAT 98
[2024-01-19 11:00] VITALS: BP 135/79; O2SAT 97
[2024-01-19 13:24] VITALS: BP 143/87; O2SAT 97
== END 2024-01-19 13:20 ==
LOC: M INFU 10:00
PROVIDERS: ATTEND Nurse Practitioner
DX: D80.1 Nonfamilial hypogammaglobulinemia (principal); Z88.2 Allergy status to sulfonamides
CPT/HCPCS: 96365; 96366; J1459

== ENCOUNTER 2024-02-16 10:01 | Outpatient (CLI) | payer MEDICARE, OTHER ==
[2024-02-16 10:00] VITALS: BP 158/89; O2SAT 94
[~2024-02-16 10:01] MED LIST changes: +methylPREDNISolone 125MG 2ML VIAL IV ONE; -methylPREDNISolone 40MG 1ML VIAL IV ONE
[2024-02-16] MEDS: IMMUNE GLOBULIN 10% 40 GM in IV 1 EA IV ONE (10:23)
[2024-02-16] MEDS: IMMUNE GLOBULIN 10% 20 GM in IV 1 EA IV ONE (10:24)
[2024-02-16 11:00] VITALS: BP 113/74; O2SAT 98
[2024-02-16 12:00] VITALS: BP 130/80; O2SAT 98
[2024-02-16 13:00] VITALS: BP 131/67; O2SAT 97
[2024-02-16 13:40] VITALS: BP 131/85; O2SAT 96
== END 2024-02-16 13:40 ==
LOC: M INFU 10:01
PROVIDERS: ATTEND Nurse Practitioner
DX: D80.1 Nonfamilial hypogammaglobulinemia (principal); Z88.2 Allergy status to sulfonamides
CPT/HCPCS: 96365; 96366; J1459

== ENCOUNTER → 2024-03-21 | Outpatient (CLI) | payer MEDICARE, OTHER ==
[~2024-03-21] MED LIST changes: -ALBUTEROL SULFATE 2.5MG/0.5ML INH NEB SOLN INH PRN; -EPINEPHrine INJ 1 MG/ML 1ML AMP IM PRN; -NS 1,000 ML IV SCH; -diphenhydrAMINE 25MG IV PRIOR TO INFUSION IV ONE; -diphenhydrAMINE 50MG/ML VIAL IV PRN; -methylPREDNISolone 125MG 2ML VIAL IV ONE; -methylPREDNISolone 125MG 2ML VIAL IV PRN
[2024-03-21 13:57] LABS: BASO # 0.1 10^3/uL (0.0-0.2); EOS # 0.1 10^3/uL (0.0-0.5); EOS % 2.8 % (0.0-3.0); HEMATOCRIT 39.4 % (42.0-52.0); HEMOGLOBIN 13.2 g/dl (13.5-17.5); LYMPH # 0.5 10^3/uL (1.5-5.0); LYMPH % 10.1 % (24.0-44.0); MEAN CORPUSCULAR HEMOGLOBIN 30.6 pg (27.0-33.0); MEAN CORPUSCULAR HGB CONC 33.5 g/dl (32.0-36.5); MEAN CORPUSCULAR VOLUME 91.2 fl (80.0-96.0); MONO # 0.6 10^3/uL (0.0-0.8); MONO % 12.4 % (2.0-8.0); NEUTROPHILS # 3.7 10^3/uL (1.5-8.5); NEUTROPHILS % 73.3 % (36.0-66.0); PLATELET COUNT, AUTOMATED 154 10^3/uL (150-450); RED BLOOD COUNT 4.32 10^6/uL (4.30-6.10); WHITE BLOOD COUNT 5.1 10^3/uL (4.0-10.0)
[2024-03-21 14:24] LABS: FREE T4 1.05 NG/DL (0.89-1.76); THYROID STIMULATING HORMONE 1.516 uIU/ML (0.55-4.78)
[2024-03-21 14:25] LABS: TOTAL 25(OH) VITAMIN D 35.2 NG/ML (20.0-100.0)
[2024-03-21 14:26] LABS: ALBUMIN 3.6 G/DL (3.2-5.2); ALKALINE PHOSPHATASE 76 U/L (40-129); ALT/SGPT 29 U/L (7.0-40); AST/SGOT < 8 U/L (<34); BILIRUBIN,TOTAL 0.9 MG/DL (0.3-1.2); BLOOD UREA NITROGEN 18 MG/DL (9-23); C REACTIVE PROTEIN QUANTITATIV 3.94 MG/DL (<1.0); CALCIUM LEVEL 9.5 MG/DL (8.3-10.6); CARBON DIOXIDE LEVEL 26 MMOL/L (20-31); CHLORIDE LEVEL 104 MMOL/L (98-107); CHOLESTEROL LEVEL 160 MG/DL (<200); CHOLESTEROL RISK RATIO 3.74 (<5); GLOMERULAR FILTRATION RATE > 60.0 (>42); GLUCOSE, FASTING 186 MG/DL (74-106); HDL CHOLESTEROL 42.7 MG/DL (>40); LDL CHOLESTEROL 52.3 MG/DL (<100); NON-HDL-C 117.3 MG/DL; POTASSIUM SERUM 4.4 MMOL/L (3.5-5.1); SODIUM LEVEL 140 MMOL/L (136-145); TOTAL PROTEIN 6.7 G/DL (5.7-8.2); TRIGLYCERIDES LEVEL 325 MG/DL (<150); VITAMIN B12 LEVEL 547 PG/ML (211-911)
[2024-03-21 14:28] LABS: HEMOGLOBIN A1c 6.4 % (4.0-6.0)
[2024-03-21 14:29] LABS: MALB URINE SIEMENS < 3.0 MG/L
== END ==
LOC: M PLALAB 10:47
PROVIDERS: ATTEND Internal Medicine Hematology
DX: E11.9 Type 2 diabetes mellitus without complications (principal)

== ENCOUNTER → 2024-03-22 | Outpatient (CLI) | payer MEDICARE, OTHER | LOC: M RAD 08:44 | PROVIDERS: ATTEND Internal Medicine Hematology | DX: Z87.891 Personal history of nicotine dependence (principal) ==

== ENCOUNTER → 2024-03-22 | Outpatient (CLI) | payer MEDICARE, OTHER | LOC: M PLALAB 14:42 | PROVIDERS: ATTEND Student in an Organized Health Care Education/Training Program | DX: C80.0 Disseminated malignant neoplasm, unspecified (principal) ==

== ENCOUNTER 2024-03-23 11:40 | Outpatient (CLI) | payer MEDICARE, OTHER ==
[~2024-03-23] VITALS: Ht 188 cm; Wt 113.6 kg
[2024-03-23 11:30] VITALS: BP 163/87; O2SAT 97
[~2024-03-23 11:40] MED LIST changes: +ALBUTEROL SULFATE 2.5MG/0.5ML INH NEB SOLN INH PRN; +EPINEPHrine INJ 1 MG/ML 1ML AMP IM PRN; +NS 1,000 ML IV SCH; +diphenhydrAMINE 50MG/ML VIAL IV PRN; +methylPREDNISolone 125MG 2ML VIAL IV PRN
[2024-03-23] MEDS: methylPREDNISolone 125MG 2ML VIAL IV ONE (11:51)
[2024-03-23] MEDS: diphenhydrAMINE 25MG IV PRIOR TO INFUSION IV ONE (11:58)
[2024-03-23] MEDS: IMMUNE GLOBULIN 10% 40 GM in IV 1 EA IV ONE (12:14)
[2024-03-23] MEDS: IMMUNE GLOBULIN 10% 20 GM in IV 1 EA IV ONE (12:19)
[2024-03-23 12:45] VITALS: BP 138/78; O2SAT 98
[2024-03-23 13:15] VITALS: BP 133/76; O2SAT 97
== END 2024-03-23 15:30 ==
LOC: M INFU 11:40
PROVIDERS: ATTEND Nurse Practitioner
DX: D80.1 Nonfamilial hypogammaglobulinemia (principal); Z88.2 Allergy status to sulfonamides
CPT/HCPCS: 96365; 96366; 96375; J1200; J1459

== ENCOUNTER → 2024-03-28 | Outpatient (CLI) | payer MEDICARE, OTHER ==
[~2024-03-28] MED LIST changes: -ALBUTEROL SULFATE 2.5MG/0.5ML INH NEB SOLN INH PRN; -EPINEPHrine INJ 1 MG/ML 1ML AMP IM PRN; -NS 1,000 ML IV SCH; -diphenhydrAMINE 50MG/ML VIAL IV PRN; -methylPREDNISolone 125MG 2ML VIAL IV PRN
== END ==
LOC: M PLARAD 11:51
PROVIDERS: ATTEND Internal Medicine Hematology & Oncology
DX: C90.00 Multiple myeloma not having achieved remission (principal)
CPT/HCPCS: 78815; A9552

== ENCOUNTER 2024-04-23 06:54 | Outpatient (CLI) | payer MEDICARE, OTHER ==
[~2024-04-23] VITALS: Ht 188 cm; Wt 116.0 kg
[~2024-04-23 06:54] MED LIST changes: +NS (Normal Saline) 0.9% 1,000 ML IV SCH
[2024-04-23] MEDS ORDERED: diphenhydrAMINE 25MG IV PRIOR TO INFUSION IV ONE ×2 (07:00)
[2024-04-23] MEDS ORDERED: methylPREDNISolone 125MG 2ML VIAL IV ONE ×2 (07:00)
[2024-04-23] MEDS ORDERED: ALBUTEROL SULFATE 2.5MG/0.5ML INH NEB SOLN INH PRN (07:01)
[2024-04-23] MEDS ORDERED: diphenhydrAMINE 50MG/ML VIAL IV PRN (07:01)
[2024-04-23] MEDS ORDERED: EPINEPHrine INJ 1 MG/ML 1ML AMP IM PRN (07:01)
[2024-04-23] MEDS ORDERED: methylPREDNISolone 125MG 2ML VIAL IV PRN (07:01)
[2024-04-23 07:05] VITALS: BP 131/73; O2SAT 97
[2024-04-23] MEDS: IMMUNE GLOBULIN 10% 40 GM in IV 1 EA IV ONE (07:18)
[2024-04-23] MEDS: IMMUNE GLOBULIN 10% 20 GM in IV 1 EA IV ONE (07:19)
[2024-04-23 08:15] VITALS: BP 119/76; O2SAT 97
[2024-04-23 08:45] VITALS: BP 122/79; O2SAT 97
[2024-04-23 09:45] VITALS: BP 123/84; O2SAT 98
[2024-04-23 10:45] VITALS: BP 129/86; O2SAT 96
== END 2024-04-23 07:05 ==
LOC: M INFU 06:54
PROVIDERS: ATTEND Specialist
DX: D80.1 Nonfamilial hypogammaglobulinemia (principal); Z88.2 Allergy status to sulfonamides
CPT/HCPCS: 96365; 96366; J1459

== ENCOUNTER → 2024-05-01 | Outpatient (CLI) | payer MEDICARE, OTHER ==
[~2024-05-01] MED LIST changes: +CYCL1CAP2 PO; +LIDOCAINE 1% MDV 20ML VIAL As Ordered ONE; -NS (Normal Saline) 0.9% 1,000 ML IV SCH
[2024-05-01 09:25] VITALS: TEMP 97.9
[2024-05-01 09:53] LABS: HEMATOCRIT 38.2 % (42.0-52.0); HEMOGLOBIN 13.3 g/dl (13.5-17.5); MEAN CORPUSCULAR HEMOGLOBIN 31.3 pg (27.0-33.0); MEAN CORPUSCULAR HGB CONC 34.8 g/dl (32.0-36.5); MEAN CORPUSCULAR VOLUME 89.9 fl (80.0-96.0); PLATELET COUNT, AUTOMATED 130 10^3/uL (150-450); RED BLOOD COUNT 4.25 10^6/uL (4.30-6.10); WHITE BLOOD COUNT 4.2 10^3/uL (4.0-10.0)
[2024-05-01 10:06] LABS: INR 1.01; PROTHROMBIN TIME 13.6 SECONDS (12.5-14.5)
[2024-05-01 10:15] VITALS: BP 142/78; O2SAT 97
== END ==
LOC: M IRPRO 09:10
PROVIDERS: ATTEND Internal Medicine Medical Oncology
DX: C90.00 Multiple myeloma not having achieved remission (principal)

== ENCOUNTER 2024-05-21 09:00 | Outpatient (CLI) | payer MEDICARE, OTHER ==
[2024-05-21 09:00] VITALS: BP 152/83; O2SAT 96
[~2024-05-21 09:00] MED LIST changes: +ALBUTEROL SULFATE 2.5MG/0.5ML INH NEB SOLN INH PRN; +EPINEPHrine INJ 1 MG/ML 1ML AMP IM PRN; -LIDOCAINE 1% MDV 20ML VIAL As Ordered ONE; +diphenhydrAMINE 50MG/ML VIAL IV PRN; +methylPREDNISolone 125MG 2ML VIAL IV PRN; +methylPREDNISolone 40MG 1ML VIAL IV ONE
[2024-05-21] MEDS: IMMUNE GLOBULIN 10% 20 GM in IV 1 EA IV ONE (09:20)
[2024-05-21] MEDS: IMMUNE GLOBULIN 10% 40 GM in IV 1 EA IV ONE (09:21)
[2024-05-21 10:30] VITALS: BP 126/78; O2SAT 96
[2024-05-21 10:50] VITALS: BP 133/76; O2SAT 97
[2024-05-21 12:00] VITALS: BP 128/76; O2SAT 97
[2024-05-21] MEDS ORDERED: diphenhydrAMINE 50MG/ML VIAL IV ONE (15:15)
== END 2024-05-21 12:30 ==
LOC: M INFU 09:00
PROVIDERS: ATTEND Nurse Practitioner
DX: D80.1 Nonfamilial hypogammaglobulinemia (principal); C90.00 Multiple myeloma not having achieved remission; Z88.2 Allergy status to sulfonamides
CPT/HCPCS: 96365; 96366; J1459

== ENCOUNTER 2024-06-18 09:00 | Outpatient (CLI) | payer MEDICARE, OTHER ==
[2024-06-18 09:00] VITALS: BP 131/79; O2SAT 98
[~2024-06-18 09:00] MED LIST changes: +NS (Normal Saline) 0.9% 1,000 ML IV SCH; +diphenhydrAMINE 25MG IV PRIOR TO INFUSION IV ONE
[2024-06-18] MEDS: IMMUNE GLOBULIN 10% 40 GM in IV 1 EA IV ONE (09:08)
[2024-06-18] MEDS: IMMUNE GLOBULIN 10% 20 GM in IV 1 EA IV ONE (09:09)
[2024-06-18 09:45] VITALS: BP 129/87; O2SAT 99
[2024-06-18 10:15] VITALS: BP 110/65; O2SAT 97
[2024-06-18 10:45] VITALS: BP 108/69; O2SAT 98
[2024-06-18 11:45] VITALS: BP 122/78; O2SAT 97
[2024-06-18 12:40] VITALS: BP 138/79; O2SAT 98
== END 2024-06-18 12:40 ==
LOC: M INFU 09:00
PROVIDERS: ATTEND Nurse Practitioner
DX: D80.1 Nonfamilial hypogammaglobulinemia (principal); Z88.2 Allergy status to sulfonamides
CPT/HCPCS: 96365; 96366; J1459

== ENCOUNTER → 2024-08-20 | Outpatient (CLI) | payer MEDICARE, OTHER ==
[~2024-08-20] MED LIST changes: -ALBUTEROL SULFATE 2.5MG/0.5ML INH NEB SOLN INH PRN; -EPINEPHrine INJ 1 MG/ML 1ML AMP IM PRN; +GLIP-318 PO; -GLIP5TAB20 PO; -NS (Normal Saline) 0.9% 1,000 ML IV SCH; -diphenhydrAMINE 25MG IV PRIOR TO INFUSION IV ONE; -diphenhydrAMINE 50MG/ML VIAL IV PRN; -methylPREDNISolone 125MG 2ML VIAL IV PRN; -methylPREDNISolone 40MG 1ML VIAL IV ONE
[2024-08-20 11:11] LABS: BASO % 0.8 % (0.0-1.0); EOS # 0.1 10^3/uL (0.0-0.5); EOS % 2.3 % (0.0-3.0); HEMATOCRIT 35.2 % (42.0-52.0); HEMOGLOBIN 11.7 g/dl (13.5-17.5); LYMPH # 0.3 10^3/uL (1.5-5.0); LYMPH % 5.8 % (24.0-44.0); MEAN CORPUSCULAR HEMOGLOBIN 32.2 pg (27.0-33.0); MEAN CORPUSCULAR HGB CONC 33.2 g/dl (32.0-36.5); MONO # 0.5 10^3/uL (0.0-0.8); MONO % 9.9 % (2.0-8.0); NEUTROPHILS # 3.9 10^3/uL (1.5-8.5); PLATELET COUNT, AUTOMATED 135 10^3/uL (150-450); RED BLOOD COUNT 3.63 10^6/uL (4.30-6.10); WHITE BLOOD COUNT 4.9 10^3/uL (4.0-10.0)
[2024-08-20 11:33] LABS: HEMOGLOBIN A1c 7.6 % (4.0-6.0); PSA SCREENING 5.97 NG/ML (< 4.00)
[2024-08-20 11:36] LABS: IRON (FE) 35 UG/DL (65-175)
[2024-08-20 11:38] LABS: FERRITIN 32.3 NG/ML (10.5-307.3)
[2024-08-20 11:39] LABS: ALBUMIN 3.4 G/DL (3.2-5.2); ALKALINE PHOSPHATASE 89 U/L (40-129); ALT/SGPT 32 U/L (7.0-40); AST/SGOT 19 U/L (<34); BILIRUBIN,TOTAL 0.4 MG/DL (0.3-1.2); BLOOD UREA NITROGEN 18 MG/DL (9-23); CALCIUM LEVEL 8.9 MG/DL (8.3-10.6); CARBON DIOXIDE LEVEL 25 MMOL/L (20-31); CHLORIDE LEVEL 107 MMOL/L (98-107); CHOLESTEROL LEVEL 173 MG/DL (<200); CHOLESTEROL RISK RATIO 3.75 (<5); CREATININE FOR GFR 0.83 MG/DL (0.70-1.30); GLOMERULAR FILTRATION RATE > 90.0 (>42); GLUCOSE, FASTING 207 MG/DL (74-106); HDL CHOLESTEROL 46.1 MG/DL (>40); LDL CHOLESTEROL 85.3 MG/DL (<100); MAGNESIUM LEVEL 1.4 MG/DL (1.8-2.4); NON-HDL-C 126.9 MG/DL; PERCENT SATURATION 8.7 % (19.7-50.0); POTASSIUM SERUM 4.4 MMOL/L (3.5-5.1); SODIUM LEVEL 142 MMOL/L (136-145); TOTAL IRON BINDING CAPACITY 402 UG/DL (250-425); TOTAL PROTEIN 6.1 G/DL (5.7-8.2); TRIGLYCERIDES LEVEL 208 MG/DL (<150)
[2024-08-20 17:52] LABS: IMMUNOGLOBULIN G 503 MG/DL (650-1600)
== END ==
LOC: M PLALAB 07:11
PROVIDERS: ATTEND Student in an Organized Health Care Education/Training Program
DX: I10 Essential (primary) hypertension (principal); D64.9 Anemia, unspecified; R97.20 Elevated prostate specific antigen [PSA]; E11.9 Type 2 diabetes mellitus without complications; E78.2 Mixed hyperlipidemia; Z12.5 Encounter for screening for malignant neoplasm of prostate
CPT/HCPCS: 36415; 80053; 80061; 82728; 82784; 83036; 83550; 83735; 85025; 85046; G0103

== ENCOUNTER → 2024-08-20 | Outpatient (REF) | payer MEDICARE, OTHER | LOC: M SFHCPLAZ 11:09 | PROVIDERS: ATTEND Student in an Organized Health Care Education/Training Program | DX: Z00.00 Encounter for general adult medical examination without abnormal findings (principal) ==

== ENCOUNTER 2024-09-05 06:51 | Day surgery (SDC) | payer MEDICARE, OTHER ==
[~2024-09-05] VITALS: Ht 188 cm; Wt 114.0 kg
[~2024-09-05 06:51] MED LIST changes: +GNP250TA9 PO
[2024-09-05] MEDS ORDERED: propofoL 500 MG/50 ML VIAL As Ordered ONE (07:11)
[2024-09-05] MEDS ORDERED: LIDOCAINE 2% 100MG/5ML SDV (FOR ANES.) As Ordered ONE (07:11)
[2024-09-05] MEDS ORDERED: fentaNYL 100 MCG/2 ML INJECTION As Ordered ONE (08:03)
[2024-09-05 08:50] VITALS: TEMP 97.5
[2024-09-05 09:10] VITALS: BP 115/79; O2SAT 98
== END 2024-09-05 09:23 | disposition home or self-care (01) ==
LOC: M OPP 06:51
PROVIDERS: ATTEND Internal Medicine Gastroenterology
DX: Z12.11 Encounter for screening for malignant neoplasm of colon (principal); D12.8 Benign neoplasm of rectum; D12.3 Benign neoplasm of transverse colon; K22.70 Barrett's esophagus without dysplasia; K64.0 First degree hemorrhoids; K57.30 Diverticulosis of large intestine without perforation or abscess without bleeding; K44.9 Diaphragmatic hernia without obstruction or gangrene; K22.89 Other specified disease of esophagus; Z85.038 Personal history of other malignant neoplasm of large intestine; K31.7 Polyp of stomach and duodenum; R12 Heartburn; Z90.49 Acquired absence of other specified parts of digestive tract; Z85.79 Personal history of other malignant neoplasms of lymphoid, hematopoietic and related tissues; I10 Essential (primary) hypertension; E78.00 Pure hypercholesterolemia, unspecified; E11.40 Type 2 diabetes mellitus with diabetic neuropathy, unspecified; G47.30 Sleep apnea, unspecified; Z79.899 Other long term (current) drug therapy; Z79.82 Long term (current) use of aspirin; Z79.84 Long term (current) use of oral hypoglycemic drugs; Z88.8 Allergy status to other drugs, medicaments and biological substances; Z88.1 Allergy status to other antibiotic agents; Z15.09 Genetic susceptibility to other malignant neoplasm
CPT/HCPCS: 43239; 45385; 88305; J3010

== ENCOUNTER 2024-10-24 10:57 | Outpatient (CLI) | payer MEDICARE, OTHER ==
[~2024-10-24] VITALS: Ht 188 cm; Wt 119.0 kg
[~2024-10-24 10:57] MED LIST changes: +ALBUTEROL SULFATE 2.5 MG/0.5 ML INH CONCENTRATE NEB SOLN INH PRN; +EPINEPHrine INJ 1 MG/ML 1ML AMP IM PRN; +diphenhydrAMINE 50 MG/ML VIAL IV PRN
[2024-10-24 11:00] VITALS: BP 130/79; O2SAT 98
[2024-10-24] MEDS ORDERED: NS (Normal Saline) 0.9% 1,000 ML IV SCH (11:00)
[2024-10-24] MEDS: ACETAMINOPHEN 650 MG PO ONE (11:15)
[2024-10-24] MEDS: IMMUNE GLOBULIN 10% 20 GM in IV 1 EA IV ONE (11:41)
[2024-10-24] MEDS: IMMUNE GLOBULIN 10% 40 GM in IV 1 EA IV ONE (11:41)
[2024-10-24 12:15] VITALS: BP 133/84; O2SAT 99
[2024-10-24 12:45] VITALS: BP 111/72; O2SAT 98
[2024-10-24 13:15] VITALS: BP 123/70; O2SAT 97
[2024-10-24 15:05] VITALS: BP 130/72; O2SAT 98
== END 2024-10-24 15:05 ==
LOC: M INFU 10:57
PROVIDERS: ATTEND Specialist
DX: C90.00 Multiple myeloma not having achieved remission (principal); Z88.2 Allergy status to sulfonamides
CPT/HCPCS: 96365; 96366; J1459

== ENCOUNTER 2024-11-21 10:40 | Outpatient (CLI) | payer MEDICARE, OTHER ==
[2024-11-21 10:40] VITALS: BP 124/80; O2SAT 100
[~2024-11-21 10:40] MED LIST changes: +NS (Normal Saline) 0.9% 1,000 ML IV SCH
[2024-11-21] MEDS: IMMUNE GLOBULIN 10% 40 GM in IV 1 EA IV ONE (10:56)
[2024-11-21] MEDS: IMMUNE GLOBULIN 10% 20 GM in IV 1 EA IV ONE (10:57)
[2024-11-21] MEDS ORDERED: ACETAMINOPHEN 650 MG PO ONE (11:00)
[2024-11-21 11:30] VITALS: BP 126/81; O2SAT 100
[2024-11-21 12:00] VITALS: BP 125/80; O2SAT 97
[2024-11-21 12:30] VITALS: BP 130/84; O2SAT 97
[2024-11-21 13:30] VITALS: BP 127/71; O2SAT 98
[2024-11-21 14:18] VITALS: BP 142/84; O2SAT 97
[2024-11-28] MEDS ORDERED: VENTAER INH (11:21)
== END 2024-11-21 14:20 ==
LOC: M INFU 10:40
PROVIDERS: ATTEND Specialist
DX: C90.00 Multiple myeloma not having achieved remission (principal); Z88.2 Allergy status to sulfonamides
CPT/HCPCS: 96365; 96366; J1459

== ENCOUNTER → 2024-12-11 | Outpatient (CLI) | payer MEDICARE, OTHER ==
[~2024-12-11] MED LIST changes: -ALBUTEROL SULFATE 2.5 MG/0.5 ML INH CONCENTRATE NEB SOLN INH PRN; -EPINEPHrine INJ 1 MG/ML 1ML AMP IM PRN; -NIRM1TAB14 PO; +NIRM1TAB16 PO; -NS (Normal Saline) 0.9% 1,000 ML IV SCH; -diphenhydrAMINE 50 MG/ML VIAL IV PRN
== END ==
LOC: M RAD 16:22
PROVIDERS: ATTEND Internal Medicine Hematology & Oncology
DX: C90.00 Multiple myeloma not having achieved remission (principal); M62.89 Other specified disorders of muscle

== ENCOUNTER 2024-12-19 10:50 | Outpatient (CLI) | payer MEDICARE, OTHER ==
[~2024-12-19] VITALS: Ht 157.5 cm; Wt 118.0 kg
[2024-12-19 10:50] VITALS: BP 151/76; O2SAT 97
[~2024-12-19 10:50] MED LIST changes: +ALBUTEROL SULFATE 2.5 MG/0.5 ML INH CONCENTRATE NEB SOLN INH PRN; +EPINEPHrine INJ 1 MG/ML 1ML AMP IM PRN; +diphenhydrAMINE 50 MG/ML VIAL IV PRN
[2024-12-19] MEDS ORDERED: NS (Normal Saline) 0.9% 1,000 ML IV SCH (11:00)
[2024-12-19] MEDS: ACETAMINOPHEN 650 MG PO ONE (11:11)
[2024-12-19] MEDS: IMMUNE GLOBULIN 10% 40 GM in IV 1 EA IV ONE (11:13)
[2024-12-19] MEDS: IMMUNE GLOBULIN 10% 20 GM in IV 1 EA IV ONE (11:17)
[2024-12-19 12:15] VITALS: BP 149/88; O2SAT 98
[2024-12-19 12:45] VITALS: BP 144/80; O2SAT 98
[2024-12-19 13:45] VITALS: BP 142/82; O2SAT 97
[2024-12-19 14:45] VITALS: BP 142/90; O2SAT 97
== END 2024-12-19 11:45 ==
LOC: M INFU 10:50
PROVIDERS: ATTEND Specialist
DX: C90.00 Multiple myeloma not having achieved remission (principal); Z88.2 Allergy status to sulfonamides
CPT/HCPCS: 96365; 96366; J1459

== ENCOUNTER → 2025-01-02 | Outpatient (CLI) | payer MEDICARE, OTHER ==
[~2025-01-02] MED LIST changes: -ALBUTEROL SULFATE 2.5 MG/0.5 ML INH CONCENTRATE NEB SOLN INH PRN; -EPINEPHrine INJ 1 MG/ML 1ML AMP IM PRN; -diphenhydrAMINE 50 MG/ML VIAL IV PRN
[2025-01-02 13:36] LABS: ESTIMATED AVERAGE GLUCOSE 169.0 MG/DL (60-110)
== END ==
LOC: M PLALAB 09:52
PROVIDERS: ATTEND Family Medicine
DX: E11.9 Type 2 diabetes mellitus without complications (principal)

== ENCOUNTER → 2025-01-02 | Outpatient (REF) | payer MEDICARE, OTHER | LOC: M SFHCPLAZ 09:16 | PROVIDERS: ATTEND Family Medicine | DX: Z53.9 Procedure and treatment not carried out, unspecified reason (principal) ==

== ENCOUNTER 2025-01-16 11:02 | Outpatient (CLI) | payer MEDICARE, OTHER ==
[~2025-01-16] VITALS: Ht 157.5 cm; Wt 121.0 kg
[~2025-01-16 11:02] MED LIST changes: +ACETAMINOPHEN 650 MG PO ONE; +ALBUTEROL SULFATE 2.5 MG/0.5 ML INH CONCENTRATE NEB SOLN INH PRN; +CIPR250T3 PO; +EPINEPHrine INJ 1 MG/ML 1ML AMP IM PRN; +LIFI1DRO4; +NS (Normal Saline) 0.9% 1,000 ML IV SCH; +diphenhydrAMINE 50 MG/ML VIAL IV PRN
[2025-01-16 11:10] VITALS: BP 130/79; O2SAT 97
[2025-01-16] MEDS: IMMUNE GLOBULIN 10% 40 GM in IV 1 EA IV ONE (11:27)
[2025-01-16] MEDS: IMMUNE GLOBULIN 10% 20 GM in IV 1 EA IV ONE (11:34)
[2025-01-16 11:45] VITALS: BP 137/81; O2SAT 98
[2025-01-16 12:15] VITALS: BP 122/77; O2SAT 98
[2025-01-16 12:45] VITALS: BP 129/75; O2SAT 97
[2025-01-16 14:50] VITALS: BP 142/80; O2SAT 96
== END 2025-01-16 14:50 | disposition home or self-care (01) ==
LOC: M INFU 11:02
PROVIDERS: ATTEND Specialist
DX: C90.00 Multiple myeloma not having achieved remission (principal); Z88.2 Allergy status to sulfonamides
CPT/HCPCS: 96365; 96366; J1459

== ENCOUNTER 2025-02-13 11:25 | Outpatient (CLI) | payer MEDICARE, OTHER ==
[~2025-02-13] VITALS: Ht 185.4 cm; Wt 121.0 kg
[~2025-02-13 11:25] MED LIST changes: -ACETAMINOPHEN 650 MG PO ONE; +ACETAMINOPHEN 650MG PO PRIOR TO INFUSION PO ONE; +IMMUNE GLOBULIN 10% 20 GM in IV 1 EA IV ONE; +IMMUNE GLOBULIN 10% 40 GM in IV 1 EA IV ONE; +diphenhydrAMINE 25MG IV PRIOR TO INFUSION IV ONE; +diphenhydrAMINE 25MG PO PRIOR TO INFUSION PO ONE
[2025-02-13 11:45] VITALS: BP 131/74; O2SAT 98
[2025-02-13] MEDS: IMMUNE GLOBULIN 10% 20 GM in IV 1 EA IV ONE (11:57)
[2025-02-13] MEDS: IMMUNE GLOBULIN 10% 40 GM in IV 1 EA IV ONE (11:58)
[2025-02-13 12:30] VITALS: BP 139/84; O2SAT 97
[2025-02-13 13:00] VITALS: BP 118/72; O2SAT 99
[2025-02-13 14:30] VITALS: BP 129/84; O2SAT 97
[2025-02-13 15:15] VITALS: BP 156/78; O2SAT 98
== END 2025-02-13 15:15 | disposition home or self-care (01) ==
LOC: M INFU 11:25
PROVIDERS: ATTEND Specialist
DX: C90.00 Multiple myeloma not having achieved remission (principal); Z88.2 Allergy status to sulfonamides
CPT/HCPCS: 96365; 96366; J1459

== ENCOUNTER → 2025-02-14 | Outpatient (REF) | payer MEDICARE, OTHER ==
[~2025-02-14] MED LIST changes: -ACETAMINOPHEN 650MG PO PRIOR TO INFUSION PO ONE; -ALBUTEROL SULFATE 2.5 MG/0.5 ML INH CONCENTRATE NEB SOLN INH PRN; -EPINEPHrine INJ 1 MG/ML 1ML AMP IM PRN; -IMMUNE GLOBULIN 10% 20 GM in IV 1 EA IV ONE; -IMMUNE GLOBULIN 10% 40 GM in IV 1 EA IV ONE; -NS (Normal Saline) 0.9% 1,000 ML IV SCH; -diphenhydrAMINE 25MG IV PRIOR TO INFUSION IV ONE; -diphenhydrAMINE 25MG PO PRIOR TO INFUSION PO ONE; -diphenhydrAMINE 50 MG/ML VIAL IV PRN
== END ==
LOC: M SFHCPLAZ 14:47
PROVIDERS: ATTEND Family Medicine
DX: R19.5 Other fecal abnormalities (principal)

== ENCOUNTER → 2025-02-15 | Outpatient (REF) | payer MEDICARE, OTHER | LOC: M SFHCPLAZ 10:10 | PROVIDERS: ATTEND Family Medicine | DX: R19.5 Other fecal abnormalities (principal) ==